=== PATIENT | female | born 1940 | race Caucasian/White ===

== ENCOUNTER → 2016-11-09 | Outpatient (CLI) | payer MEDICARE, OTHER ==
[~2016-11-09] MED LIST: ASPI-346 PO; CHOL1TAB46 PO; CZR50 PO; IBUP-1050 PO; METO25TA3 PO; MULT-506 PO; SIMV20TA2 PO; [UNRECOGNIZED DRUG - CODE] PO
[2016-11-09 13:12] LABS: ALT/SGPT 35 U/L (12-78); AST/SGOT 36 U/L (15-37); BLOOD UREA NITROGEN 18 mg/dl (7-18); BUN/CREATININE RATIO 14.7 (10-20); CALCIUM 9.4 mg/dl (8.5-10.1); CARBON DIOXIDE 30 mmol/L (21-32); CHLORIDE 106 mmol/L (98-107); GLUCOSE 101 mg/dl (70-99); POTASSIUM 4.1 mmol/L (3.5-5.1); SODIUM 141 mmol/L (136-145)
[2016-11-09 13:15] LABS: ALB/GLOB RATIO 0.9 (0.9-2); ALKALINE PHOSPHATASE 64 U/L (45-117); CHOLESTEROL 137 mg/dl (0-200); CHOLESTEROL/HDL RATIO 2.1; HDL CHOLESTEROL 65 mg/dl; LDL CHOLESTEROL CALCULATED 42 mg/dl; TRIGLYCERIDES 149 mg/dl (0-150); VERY LOW DENSITY LIPOPROT CALC 30 mg/dl
[2016-11-09 13:38] LABS: ESTIMATED AVERAGE GLUCOSE 126 mg/dl; HA1C FLAG Normal (Normal)
== END | disposition home or self-care (01) ==
LOC: C.LABBFT 08:37
PROVIDERS: ATTEND Internal Medicine
DX: E11.9 Type 2 diabetes mellitus without complications (principal); E78.00 Pure hypercholesterolemia, unspecified

== ENCOUNTER → 2016-11-19 | Outpatient (CLI) | payer MEDICARE, OTHER ==
--- NOTE | 2016-11-19 10:57 | DIAGNOSTIC IMAGING REPORT ---
BILATERAL CAROTID DOPPLER STUDY HISTORY: Mental status change E04.1 Solitary thyroid [id number] COMPARISON: None. TECHNIQUE: Real-time, grayscale, and color Doppler sonography of the carotid arteries was performed. Imaging reviewed in the transverse and longitudinal planes. All measurements were calculated based on NASCET criteria. FINDINGS: Antegrade flow is seen in the bilateral vertebral arteries. The brachial pressures are hemodynamically similar. Moderate plaque formation bilaterally The peak systolic velocity within the right ICA is 112. The right systolic ratio is 2.1. The peak systolic velocity within the left ICA is 136. The left systolic ratio is 2.2. IMPRESSION: 30/40% narrowing of the internal carotid arteries bilaterally. Mild plaque formation bilaterally. No evidence for high-grade stenosis. Electronically signed by: Jose De Los Santos M.D. 11/19/2016 10:55 AM Dictated Date/Time: 11/19/2016 10:53 AM
--- NOTE | 2016-11-19 11:00 | DIAGNOSTIC IMAGING REPORT ---
THYROID ULTRASOUND HISTORY: Nodule E04.1 Solitary thyroid [id number] COMPARISON: 12/25/2013 FINDINGS: Right lobe: Maximum dimension 3.7 cm. Several microcysts measuring no more than 3 mm. Left lobe: Maximum dimension 3.4 cm. Several very small hypoechoic and/or cystic nodules measuring no more than 6 mm. This is improved from the prior exam. Isthmus: No nodules. IMPRESSION: Minimal multicystic multinodular change. No current evidence for dominant nodule. Improved from the prior exam. Electronically signed by: Jose De Los Santos M.D. 11/19/2016 10:58 AM Dictated Date/Time: 11/19/2016 10:55 AM
== END | disposition home or self-care (01) ==
LOC: C.ULTR 09:52
PROVIDERS: ATTEND Internal Medicine
DX: E04.1 Nontoxic single thyroid nodule (principal); I65.23 Occlusion and stenosis of bilateral carotid arteries

== ENCOUNTER → 2017-05-17 | Outpatient (CLI) | payer MEDICARE ==
[2017-05-17 12:36] LABS: URINE APPEARANCE TURBID (CLEAR); URINE BILIRUBIN NEG (NEG); URINE COLOR YELLOW; URINE EPITHELIAL CELL AUTO >30 /lpf (0-5); URINE NITRITE NEG (NEG); URINE PH 6.5 (4.5-7.5); URINE SPECIFIC GRAVITY 1.017 (1.000-1.030); UROBILINOGEN NEG (NEG); ZZUR CULT IF INDIC CLEAN CATCH NO
[2017-05-17 12:37] LABS: MANUAL MICROSCOPIC REQUIRED? NO; REVIEW REQ? NO
[2017-05-17 12:42] LABS: BLOOD UREA NITROGEN 15 mg/dl (7-18); BUN/CREATININE RATIO 13.7 (10-20); CALCIUM 9.4 mg/dl (8.5-10.1); CARBON DIOXIDE 27 mmol/L (21-32); CHLORIDE 106 mmol/L (98-107); GLUCOSE 108 mg/dl (70-99); POTASSIUM 4.2 mmol/L (3.5-5.1); SODIUM 141 mmol/L (136-145)
[2017-05-17 13:04] LABS: BASO % 0.5 %; BASO ABS # 0.05 K/uL (0-0.2); COMPLETE YES; EOS % 1.4 %; HEMATOCRIT 45.5 % (37-47); IG% 0.5 %; LYMPH % 27.1 %; LYMPH ABS # 2.88 K/uL (1.2-3.4); MEAN CELL VOLUME 95.2 fL (80-100); MEAN CORPUSCULAR HEMOGLOBIN 30.1 pg (25-34); MEAN CORPUSCULAR HGB CONC 31.6 g/dl (32-36); MEAN PLATELET VOLUME 10.5 fL (7.4-10.4); NEUT % 63.5 %; PLATELET COUNT 292 K/uL (130-400); RED BLOOD COUNT 4.78 M/uL (4.2-5.4); WHITE BLOOD COUNT 10.64 K/uL (4.8-10.8)
[2017-05-17 13:16] LABS: RATIO 34.2 mcg/mg (0-30.0)
== END | disposition home or self-care (01) ==
LOC: C.LABBFT 08:31
PROVIDERS: ATTEND Internal Medicine
DX: E11.9 Type 2 diabetes mellitus without complications (principal); E78.00 Pure hypercholesterolemia, unspecified; M81.0 Age-related osteoporosis without current pathological fracture

== ENCOUNTER → 2017-05-31 | Outpatient (CLI) | payer OTHER ==
--- NOTE | 2017-05-31 15:21 | MAMMOGRAPHY REPORT ---
UNILATERAL RIGHT DIGITAL SCREENING MAMMOGRAM TOMOSYNTHESIS WITH CAD: 05/31/2017 CLINICAL HISTORY: Asymptomatic. Personal history of breast cancer. TECHNIQUE: Right breast tomosynthesis in addition to standard 2D mammography was performed. Current miranda galvez was also evaluated with a Computer Aided Detection (CAD) system. COMPARISON: Comparison is made to exams dated: 05/25/2016 mammogram, 05/20/2015 mammogram, 03/29/2014 mammogram, 03/27/2013 mammogram, 03/24/2012 mammogram, and 03/22/2011 mammogram - [facility] enter. BREAST COMPOSITION: The tissue of the right breast is almost entirely fatty. FINDINGS: There are scattered benign rim calcifications in the right breast. A stable intramammary lymph node in the upper outer quadrant, and is stable asymmetry in the lateral breast. No suspicious mass, architectural distortion or cluster of microcalcifications is seen. IMPRESSION: ACR BI-RADS CATEGORY 2: BENIGN There is no mammographic evidence of malignancy. A 1 year screening mammogram is recommended. The pa tient will receive written notification of the results. Approximately 10% of breast cancers are not detected with mammography. A negative mammographic report should not delay biopsy if a clinically suggestive mass is present. Zeinab Peck M.D. ay/:05/31/2017 12:08:30 Monorail Charger Operator: Linette LOO)([place]), [facility] letter sent: Normal 1/2 BI-RADS Code: ACR BI-RADS Category 2: Benign
== END | disposition home or self-care (01) ==
LOC: C.MAMM 09:46
PROVIDERS: ATTEND Internal Medicine
DX: Z12.31 Encounter for screening mammogram for malignant neoplasm of breast (principal)

== ENCOUNTER → 2017-06-28 | Outpatient (CLI) | payer MEDICARE | END | disposition home or self-care (01) | LOC: C.MAMM 09:36 | PROVIDERS: ATTEND Internal Medicine | DX: M81.0 Age-related osteoporosis without current pathological fracture (principal) ==

== ENCOUNTER → 2017-11-22 | Outpatient (CLI) | payer MEDICARE ==
[~2017-11-22] MED LIST changes: -METO25TA3 PO; +METO25TA4 PO
[2017-11-22 12:55] LABS: HEMOGLOBIN A1C 6.1 % (4.5-5.6)
[2017-11-22 13:12] LABS: ALBUMIN 3.7 gm/dl (3.4-5.0); ALT/SGPT 41 U/L (12-78); AST/SGOT 49 U/L (15-37); BLOOD UREA NITROGEN 15 mg/dl (7-18); CALCIUM 9.7 mg/dl (8.5-10.1); CARBON DIOXIDE 29 mmol/L (21-32); CHOLESTEROL 136 mg/dl (0-200); CREATININE 1.25 mg/dl (0.60-1.20); GLUCOSE 103 mg/dl (70-99); POTASSIUM 4.3 mmol/L (3.5-5.1); SODIUM 139 mmol/L (136-145)
[2017-11-22 13:15] LABS: ALKALINE PHOSPHATASE 74 U/L (45-117); LDL CHOLESTEROL CALCULATED 48 mg/dl
== END | disposition home or self-care (01) ==
LOC: C.LABBFT 08:28
PROVIDERS: ATTEND Internal Medicine
DX: E78.00 Pure hypercholesterolemia, unspecified (principal); E11.9 Type 2 diabetes mellitus without complications

== ENCOUNTER → 2017-11-29 | Outpatient (CLI) | payer MEDICARE | END | disposition home or self-care (01) | LOC: C.LABBFT 11:55 | PROVIDERS: ATTEND Internal Medicine | DX: R77.1 Abnormality of globulin (principal); N18.3 Chronic kidney disease, stage 3 (moderate) ==

== ENCOUNTER 2021-02-03 06:27 | Inpatient (IN) ==
--- NOTE | 2021-01-13 13:35 | PAT Medication Instructions ---
Medication Instructions Date of Service January 13, 2021 Home Medications Medication Instructions Recorded miscellaneous medical supply #1 ea 06/04/19 miscellaneous medical supply #2 ea 06/04/19 simvastatin 40 mg tablet 40 mg PO HS #90 tab 06/05/20 cholecalciferol (vitamin D3) 125 mcg (5,000 unit) tablet 5,000 units PO QAM glucosam mcmanus vzk-bwhisbhvs-P-Mn 1 cap PO BID simvastatin 40 mg tablet 40 mg PO HS acetaminophen [Tylenol Extra Strength] 500 mg PO Q6H PRN aspirin [Aspir-81] 81 mg PO QAM ibuprofen 200 mg PO Q6H PRN losartan 100 mg PO QAM metoprolol succinate 25 mg PO QAM multivitamin 1 tab PO QAM ASK your surgeon for instructions ibuprofen 200 mg PO Q6H PRN STOP taking 2 weeks before surgery (or as soon as possible if surgery is within 2 weeks) glucosam mcmanus fbh-fbprzavvj-K-Mn 1 cap PO BID DO NOT take the morning of surgery cholecalciferol (vitamin D3) 125 mcg (5,000 unit) tablet 5,000 units PO QAM losartan 100 mg PO QAM multivitamin 1 tab PO QAM Take morning of surgery With a small sip of water, OTHERWISE NOTHING TO EAT OR DRINK AFTER MIDNIGHT: acetaminophen [Tylenol Extra Strength] 500 mg PO Q6H PRN (okay to take up to 4 hours prior to surgery if needed) aspirin [Aspir-81] 81 mg PO QAM (continue as normal unless told otherwise by surgeon) metoprolol succinate 25 mg PO QAM Take evening before surgery simvastatin 40 mg tablet 40 mg PO HS acetaminophen [Tylenol Extra Strength] 500 mg PO Q6H PRN (if needed) Other Notes If you have any questions please call us at [phone] or [phone] or [phone] or [phone]
--- NOTE | 2021-01-14 12:38 | Anesthesiology Consultation ---
Date of Service January 14, 2021 Assessment & Plan (1) Encounter for pre-operative examination: - Awaiting surgeon-ordered PCP clearance. - COVID screening: Per assessment on 01/14: Travel screen negative, no known COVID-19 positive contacts or current COVID-19 related symptoms. Patient vaccinated. Surgeon arranging preop COVID testing. Awaiting results. - Hx glidescope intubation: Lap cholecystectomy (04/30/19): DL x1- Grade 4, EZ mask vent, Glidescope #3 (grade view 2), ETT 7 at [facility] - LUE limb restriction: s/p mastectomy - Cardiology office visit (01/16/21): "Her preoperative EKG shows new inferior T- wave inversions which are most likely secondary to LVH. Her last Echocardiogram in 2018 showed normal LV systolic function, mild concentric LVH, hfwv-hw-cymuxcex aortic stenosis, mild MR, mild TR. Recommend repeat Echocardiogram to re-evaluate LV systolic function, and to assess her valvular heart disease prior to undergoing elective orthopedic surgery.. Provided her has not shown significant progression, and she has normal LV systolic function -- patient will be in acceptable surgical risk to proceed with surgery as scheduled provided she take her usual dose of Metoprolol Succinate ER 25 mg with sips of water. Patient was advised to hold Losartan the morning of surgery. Recommend DVT prophylaxis postoperatively as per surgeon. Also recommend monitoring daily I&O's, body weights, daily labs and avoiding nephrotoxic drugs." Awaiting cardiology-ordered ECHO report. Chart Review Chart Review: Patient seen in Pre Admission Testing Teaching & Discussion Pre-Anesthesia Teaching/Discussion Notes: Instructed NPO after midnight before surgery,except medications with 15 cc of water. Medication instructions provided according to the PAT guidelines. History Surgery Operation Date: 02/03/21 10:35 Proposed Procedures p Left Total Hip Arthroplasty Anterior - Boubacar Garcia DO Height/Weight Height: 5 ft Weight: 65.2 kg Allergies Allergy/AdvReac Type Severity Reaction Status Date / Time adhesive Allergy Unknown Skin Verified 01/16/21 10:47 irritation with tape propoxyphene AdvReac Unknown Nausea Verified 01/16/21 10:47 amoxicillin AdvReac Nausea Verified 01/16/21 10:47 Opioid Analgesics AdvReac Unknown Dizziness Uncoded 01/16/21 10:47 Medications Home Medications Medication Instructions Recorded Confirmed Last Taken cholecalciferol (vitamin D3) 125 5,000 units PO QAM tab 02/21/19 01/16/21 04/20/19 mcg (5,000 unit) tablet glucosam mcmanus dxc-tmooahzlx-F-Mn 1 cap PO BID 04/09/19 01/16/21 04/20/19 miscellaneous medical supply #1 ea 06/04/19 01/16/21 Unknown miscellaneous medical supply #2 ea 06/04/19 01/16/21 Unknown simvastatin 40 mg tablet 40 mg PO HS #90 tab 06/05/20 01/16/21 Unknown acetaminophen [Tylenol Extra 500 mg PO Q6H PRN 01/06/21 01/16/21 Unknown Strength] aspirin [Aspir-81] 81 mg PO QAM 01/06/21 01/16/21 Unknown ibuprofen 200 mg PO Q6H PRN 01/06/21 01/16/21 Unknown losartan 100 mg PO QAM 01/06/21 01/16/21 Unknown metoprolol succinate 25 mg PO QAM 01/06/21 01/16/21 Unknown multivitamin 1 tab PO QAM 01/06/21 01/16/21 Unknown Past Medical History Medical History Aortic stenosis Arthritis Cancer Carotid stenosis CKD (chronic kidney disease), stage III Diverticular disease Hearing loss Hyperacusis of both ears Hyperlipidemia Hypertension Memory impairment Osteoarthritis Pulmonary embolism Exercise / Class Metabolic Activity III < 4 Walking/Shop/Light housework (no chest pain, no sob with daily activities (housework)) Past Family History Family History Mother Cardiac disorder Father Cardiac disorder Sister Myocardial infarction Stroke syndrome Denies family history of Ovarian cancer Prostate cancer Breast cancer Colorectal cancer Past Surgical History Surgical History H/O cystoscopy History of bilateral tubal ligation History of cataract surgery History of CEA (carotid endarterectomy) History of cholecystectomy History of colonoscopy History of modified radical mastectomy of left breast History of partial colectomy History of total abdominal hysterectomy and bilateral salpingo-oophorectomy Past Anesthesia History No Family Hx of Anesthesia Complications and Other ("Slow to wake") History of PONV No Hx of PONV and Hx of Motion Sickness (Remote hx) Social History Smoking Status: Former smoker Do You Dip or Chew Tobacco: No Smoking End Date: Quit several years ago Hx Alcohol Use: No Hx Substance Use: No Review of Systems + snoring. No apnea events. Patient denies chest pain, shortness of breath, fever, chills, cough, wheezing, palpitations. Physical Exam Vital Signs VITALS BP 122/72 P 74 TEMP 98.6 SP02 95%RA RESP 16 PHYSICAL Full cervical extension range of motion. Full TMJ range of motion. TMD 2 finger breaths (small chin) Mallampati Score 3 Dentition: intact, + crowns Lungs: clear throughout to auscultation Cardiac: regular rate and rhythm, I/ systolic murmur Spine: normal Carotid arteries: + bruits Extremities: no edema Lab Results Anesthesia Preop Results Results Anesthesia Widget: WBC 9.39 K/uL (4.8-10.8) 01/14/21 Hgb 14.0 g/dL (12.0-16.0) 01/14/21 Hct 42.4 % (37-47) 01/14/21 Plt 287 K/uL (130-400) 01/14/21 Na 142 mmol/L (136-145) 01/14/21 K 4.1 mmol/L (3.5-5.1) 01/14/21 Cl 109 mmol/L (98-107) H 01/14/21 CO2 27 mmol/L (21-32) 01/14/21 BUN 23 mg/dl (7-18) H 01/14/21 Creat 1.15 mg/dl (0.6-1.2) 01/14/21 Glucose Level 89 mg/dl (70-99) 01/14/21 PT 10.6 Seconds (9.0-12.0) 01/14/21 PTT 30.4 Seconds (21.0-31.0) 01/14/21 INR 1.0 (0.9-1.1) 01/14/21 HA1c 5.9 % (4.5-5.6) H 01/14/21 Urine Color Yellow 01/14/21 Urine Appearance Clear (Clear) 01/14/21 Urine pH 5.5 (4.5-7.5) 01/14/21 Urine Specific [place] 1.015 (1.000-1.030) 01/14/21 Urine Protein Negative (Negative) 01/14/21 Urine Glucose (UA) Negative (Negative) 01/14/21 Urine Ketones Negative (Negative) 01/14/21 Urine Blood 1+ (Negative) H 01/14/21 Urine Nitrite Negative (Negative) 01/14/21 Urine Bilirubin Negative (Negative) 01/14/21 Urine Urobilinogen Negative (Negative) 01/14/21 Urine Leukocyte Esterase Trace (Negative) H 01/14/21 Urine WBC (Auto) 10-30 /hpf (0-5) H 01/14/21 Urine RBC (Auto) 5-10 /hpf (0-4) H 01/14/21 Urine Hyaline Casts (Auto) 5-10 /lpf (0-5) H 01/14/21 Urine Epithelial Cells (Auto) >30 /lpf (0-5) H 01/14/21 Urine Bacteria (Auto) 1+ (Negative) H 01/14/21 Blood Type O Positive 01/14/21 Antibody Screen NEGATIVE 01/14/21 Testing Electrocardiogram Date: 01/14/21 Normal sinus rhythm at 64 bpm chronic T wave inversion in anterior lateral leads T wave inversion in inferior leads. > Patient scheduled for upcoming preop cardiac evaluation. Chest X-Ray Date: 01/14/21 FINDINGS: The cardiac and mediastinal contours are normal. There is no evidence of focal pulmonary consolidation. There is no evidence of failure. No pleural effusions are visualized.[There are mild chronic midthoracic vertebral body compression deformities. IMPRESSION: No active disease in the chest. Echocardiogram Date: 01/10/19 EF 60 to 65%. No regional wall motion abnormality. Mild concentric LVH. Mild to moderate aortic stenosis (LEONORA 1.5 cm, mean gradient 10.8 mmHg). Compared to study 11/30/2016, there has been some progression of aortic stenosis. Mild MR. Mild TR. Grade 1 diastolic dysfunction. Other Testing Carotid doppler (02/08/19): SHABNAM <50% stenosis, LICA 50-69% stenosis, > 50% Left ECA stenosis, b/l antegrade flow. Compared to previous exam 12/08/17, slight progression of left ICA stenosis by PSVs but still remains within 50-69%.
--- NOTE | 2021-01-23 18:18 | History & Physical Report ---
Date of Service February 03, 2021 Assessment & Plan (1) Degenerative joint disease of left hip: I have indicated the patient for left anterior total hip replacement. The risks, benefits and complications of surgery were explained to the patient which include but not limited to infection, acute blood loss, DVT/PE, injury to nerves, vessels, bone, soft tissue, arthrofibrosis, chronic pain, failure of the prosthesis, hip dislocation, leg length discrepancy, need for additional surgery, cardiac and pulmonary events and . The patient wished to proceed with surgery and informed consent was obtained at this time. We will plan for Lovenox post-operatively for DVT prophylaxis. Upon discharge the patient will be discharged home with home health services. Appropriate clearances by PCP and cardiology were obtained. History of Present Illness Chief Complaint: Left hip pain/DJD Primary Care Provider: zA Sapp MD The patient is a 80 year old female who presents with complaints of severe left hip pain and DJD. The patient has failed outpatient conservative treatments to this point which included NSAIDs, IA corticosteroid injection, home exercise/walking program. The patient's pain and limited function have progressed to the point where they severely hinder their activities of daily living and they no longer tolerate exercise programs. They are requesting to proceed with total hip replacement surgery. Allergies Allergy/AdvReac Type Severity Reaction Status Date / Time adhesive Allergy Unknown Skin Verified 02/03/21 06:53 irritation with tape propoxyphene AdvReac Unknown Nausea Verified 02/03/21 06:53 amoxicillin AdvReac Nausea Verified 02/03/21 06:53 Opioid Analgesics AdvReac Unknown Dizziness Uncoded 02/03/21 06:53 Home Medications Medication Instructions Recorded Confirmed Type cholecalciferol (vitamin D3) 125 5,000 units PO QAM tab 02/21/19 02/03/21 History mcg (5,000 unit) tablet glucosam mcmanus sls-yubbuagez-Z-Mn 1 cap PO BID 04/09/19 02/03/21 History miscellaneous medical supply #1 ea 06/04/19 01/21/21 Rx miscellaneous medical supply #2 ea 06/04/19 01/21/21 Rx simvastatin 40 mg tablet 40 mg PO HS #90 tab 06/05/20 02/03/21 Rx acetaminophen [Tylenol Extra 500 mg PO Q6H PRN 01/06/21 02/03/21 History Strength] aspirin [Aspir-81] 81 mg PO QAM 01/06/21 02/03/21 History ibuprofen 200 mg PO Q6H PRN 01/06/21 02/03/21 History losartan 100 mg PO QAM 01/06/21 02/03/21 History metoprolol succinate 25 mg PO QAM 01/06/21 02/03/21 History multivitamin 1 tab PO QAM 01/06/21 02/03/21 History Past Med/Surg History Medical History Aortic stenosis Mild to moderate aortic stenosis (LEONORA 1.5cm2, MG 10.8mmhg) per 12/2018 echo Arthritis Cancer Left breast s/p left mastectomy (/ limb restriction) Carotid stenosis s/p Right CEA (2013) CKD (chronic kidney disease), stage III PCP monitoring Diverticular disease remote colon resection 2/2 diverticulitis Hearing loss Hyperacusis of both ears Hyperlipidemia Hypertension Memory impairment Osteoarthritis Pulmonary embolism Post-op (cystoscopy 17+ years ago)- previously on AC/since discontinued Surgical History H/O cystoscopy History of bilateral tubal ligation History of cataract surgery R/L History of CEA (carotid endarterectomy) Right (2013) History of cholecystectomy Lap cholecystectomy (04/30/19): DL x1- Grade 4, EZ mask vent, Glidescope #3 (grade view 2), ETT 7 at [facility] History of colonoscopy History of modified radical mastectomy of left breast History of partial colectomy History of total abdominal hysterectomy and bilateral salpingo-oophorectomy Family History Mother Cardiac disorder Father Cardiac disorder Sister Myocardial infarction Stroke syndrome Denies family history of Ovarian cancer Prostate cancer Breast cancer Colorectal cancer Social History Smoking Status: Former smoker Smoking End Date: Quit several years ago; Second Hand Exposure: No; Do You Dip or Chew Tobacco: No; Hx Alcohol Use: No Hx Substance Use: No Preferred Language: Maltese Communication Ability: Effective Visual Impairment: No Limitations Hearing Ability: Hard of Hearing Milk Hauler Required: No Beliefs That Will Affect Care: None marital status: / Current Living Situation: Alone current occupational status: retired Other Information That Helps Us Care for You: No Feels Safe at Home: Yes Safety Concerns: Feels Safe At This Time Childhood Exposure to Second-Hand Smoke: Yes caffeine: Yes (coffee) Dental Care, Regularly: Yes Physical Activity Frequency: Does not Exercise Seatbelt Use: always Sunscreen Use: No Assistive Devices: Cane, Glasses and Hearing Aid - Bilateral Review of Systems Review of Systems: All systems reviewed & are unremarkable except as noted in HPI & below Constitutional: as per Subjective / HPI Physical Exam Physical Exam: LLE NVSI +EHL/FHL/TA/GS SILT grossly, +2 DP pulse, compartments soft NT, limited painful ROM of the hip antalgic gait. Constitutional: WD/WN, vitals as above Eyes: PERRL, conjunctivae normal, anicteric sclerae ENMT: external ear and nose normal, oropharynx normal Neck: trachea midline, no thyromegaly Respiratory: normal respiratory effort, lungs clear to auscultation Cardiovascular: RRR, no murmur, no edema Gastrointestinal (Abdomen): normal bowel sounds, soft, nontender, no hepatosplenomegaly Musculoskeletal: no cyanosis or clubbing, extremities motor strength 5/5 Skin: no rashes, warm and dry Neurologic: patellar DTR's 2+ bilat, sensation intact Psychiatric: A+Ox3, euthymic affect Lymphatic: no cervical or axillary lymphadenopathy Results & Data Results & Data ([facility]) Diagnostic Findings Multiple views of the hip demonstrates severe DJD with complete loss of the joint space. +osteophytes, +sclerosis, +subchondral cysts.
[~2021-02-03 06:27] MED LIST changes: +ACETAMINOPHEN 500 MG TAB PO SCH; -ASPI-346 PO; +BUPIVACAINE 0.5 % 5 MG/1 ML PF 10ML VIAL ONE; -CHOL1TAB46 PO; -CZR50 PO; +CeleBREX 200 MG CAP PO SCH; +FAMOTIDINE 20 MG TAB PO SCH; +GABAPENTIN 300 MG CAP PO SCH; -IBUP-1050 PO; +LR 15ML/HR IV SCH; -METO25TA4 PO; +METOCLOPRAMIDE HCL 10 MG TABLET PO SCH; -MULT-506 PO; +ROPIVACAINE 0.5% HCL/PF 150 MG, BUPIVACAINE 0.75% MPF 20 ML, EPINEPHrine 30MG/30ML (OR ... INFIL SCH; -SIMV20TA2 PO; +TRANEXAMIC ACID 1,000 MG **IV Intra-op IV SCH; +TRANEXAMIC ACID 1,000 MG **IV Pre-op IV SCH; -[UNRECOGNIZED DRUG - CODE] PO; +ceFAZolin 1000MG 1,000 MG/7.5 ML SYR IV SCH; +dexAMETHasone 4 MG TAB PO SCH
[2021-02-03] MEDS ORDERED: fentaNYL citrate 100 MCG/2 ML VIAL ONE (07:43)
[2021-02-03] MEDS ORDERED: MIDAZOLAM HCL 1 MG/ML 2ML VIAL ONE (07:43)
[2021-02-03] MEDS ORDERED: PROPOFOL IV EMULSION 10 MG/ML 20 ML VIAL IV ONE (07:43)
[2021-02-03] MEDS ORDERED: LIDOCAINE 2% 2 ML VIAL/AMP(20MG/ML) INFIL ONE (07:43)
[2021-02-03] MEDS ORDERED: PHENYLEPHRINE 100MCG/ML 5ML SYR IV PRN (08:57)
[2021-02-03] MEDS ORDERED: ATROPINE SULFATE 0.1 MG/ML 10ML SYR IV PRN (08:57)
[2021-02-03] MEDS ORDERED: LABETALOL HCL IV 5 MG/ML 20ML IV PRN (08:57)
[2021-02-03] MEDS ORDERED: ePHEDrine sulfate 50 MG/ML AMP IV PRN (08:57)
[2021-02-03] MEDS ORDERED: fentaNYL citrate 100 MCG/2 ML VIAL IV PRN (08:57)
[2021-02-03] MEDS ORDERED: ONDANSETRON INJ 2 MG/ML 2 ML VIAL IV PRN ×2 (08:57→13:27)
--- NOTE | 2021-02-03 09:08 | History & Physical Bridge Note ---
Date of Service February 03, 2021 History & Physical Bridge Note I have examined the patient, reviewed the History & Physical and in the interval since the performance of the History & Physical I have noted the following changes of clinical significance: no changes noted
[2021-02-03] MEDS ORDERED: ORTHO JOINT ANESTHETIC ONE (09:16)
--- NOTE | 2021-02-03 11:32 | Post Operative Brief Note ---
Immediate Post Op Note v1 Date of Surgery February 03, 2021 Pre & Post Diagnosis Operation Date: 02/03/21 09:20 Pre-Op Diagnosis: Unilateral Primary Osteoarthritis Left Hip Post-Op Diagnosis: Unilateral Primary Osteoarthritis Left Hip I identified the patient and participated in the time-out.: Yes Procedure Operation Date: 02/03/21 09:20 Actual Procedures p Left Anterior Total Hip Arthroplasty(Left) - Boubacar Garcia DO Surgeon Boubacar Garcia DO Brick Handler Mark Guerra Estimated Blood Loss 165 Findings Consistent with Post-Op Diagnosis Fluids See anesthesia report Specimens Femoral head Anesthesia Type Spinal MAC Complications none Disposition Disposition: Recovery Room Overlapping Procedure I was present for: the critical portions of procedure. I was immediately available: during the entire case. Back up surgeon: was not required during procedure.
--- NOTE | 2021-02-03 11:34 | Operative Report ---
Post Operative Report Pre & Post Diagnosis Operation Date: 02/03/21 09:20 Pre-Op Diagnosis: Unilateral Primary Osteoarthritis Left Hip Post-Op Diagnosis: Unilateral Primary Osteoarthritis Left Hip I identified the patient and participated in the time-out.: Yes Procedure Operation Date: 02/03/21 09:20 Actual Procedures p Left Anterior Total Hip Arthroplasty(Left) - Boubacar Garcia DO Surgeon Boubacar Garcia DO Disease Management Nurse Mark Guerra Estimated Blood Loss 165 Findings Consistent with Post-Op Diagnosis Fluids See anesthesia report Specimens Femoral head Anesthesia Type Spinal MAC Complications none Disposition Disposition: Recovery Room Indications The patient is a 80-year-old female who presents with severe progressive left hip DJD who has failed outpatient conservative treatments. I indicated the patient for a anterior total hip replacement and the risks and benefits were explained in detail which include but not limited to infection, bleeding, blood clot, damage to surrounding bone, nerves, vessels, soft tissue, hip dislocation, failure of the prosthesis, leg length discrepancy, need for additional surgery and . The patient agreed to proceed with replacement of the hip and informed consent was obtained. Appropriate clearances were obtained. Description of Procedure COMPONENTS USED: [employer]ph[employer]ology hip system: Acetabulum size 48, femur size 4 high offset, femoral head 32+0, liner 48x32, acetabular screw 25 mm x 1. DESCRIPTION OF PROCEDURE: Following satisfactory spinal anesthesia, the patient was placed supine on the OR table. The right leg was placed in the well leg self and the left leg in the traction device. The left leg was prepared with ChloraPrep and draped sterilely. A surgical timeout was performed, patient identified and site [place] verified. Appropriate antibiotics were given. A standard anterior approach in the interval between the sartorius and tensor muscles was performed. Dissection was carried down through subcutaneous tissues. Electrocautery was utilized for hemostasis. Circumflex femoral vessels were identified, tied and ligated. The anterior capsular fat pad was removed and the capsulotomy was performed revealing the arthritic femoral neck and head. A femoral neck cut was made with reciprocating saw and the bone fragments removed. The acetabular self-retraining retractor was placed. Acetabular reaming was completed under fluoroscopic guidance, a 48 shell was impacted into an anatomic position and secured with a acetabular screw. Local anesthetic was placed and following irrigation, the polyethylene liner was placed. The femur was placed into position of external rotation, extension and adduction. Femoral canal was prepared up to the size 4 high offset. Trial reduction with a 32+0 neck length head showed good soft tissue tension, leg lengths restored, and good fit and fill of the proximal canal using fluoroscopic landmarks. The hip was dislocated. The trial component was removed. The final implant was placed. The hip was irrigated with sterile saline solution and reduced. A Betadine soak was performed. After 3 minutes, the hip was once more irrigated with copious sterile saline solution with bacitracin. Saranya-incisional soft tissue was injected utilizing [place] [employer]omix which includes a combination of Ropivicaine 0.5% 150mg, Bupivicaine 0.5%/Epinephrine 1:200,000 30ml, Toradol 30mg, Dexamethasone 4mg, Ketamine 10mg, Clonidine 100mcg and NSS 30ml solution. The capsule was then closed with 1-0 Vicryl interrupted figure of eight sutures. The fascia was closed with a running suture of #1 Vicryl, the subcutaneous tissues with 2-0 Vicryl and the skin was closed with alondra and a sterile dry d ressing was applied which included aubrie incisional VAC. The patient tolerated the procedure well and was transported to PACU in stable condition. Due to the complex nature of the procedure, the entire surgery was performed with the operational assistance of Mark Guerra PA-C. The pizza hut assistant, under direct supervision, was involved in the actual performance of all aspects of the surgical procedure including patient positioning, hemostasis, tissue retraction, instrument management and wound closure. I attest to the content of the Intraoperative Record and any orders documented therein. Any exceptions are noted below.
--- NOTE | 2021-02-03 12:11 | Anesthesiology Progress Note ---
Date of Service February 03, 2021 Anesthesia Post Procedure Vital Signs Vital Signs: Temp Pulse Pulse Resp BP Pulse Ox 02/03/21 11:52 36.1 C L 63 18 126/40 L 100 02/03/21 07:07 36.7 C 74 18 156/58 H 96 Transfer of Care Handoff Completed per policy Notes Mental Status: alert / awake / arousable Patient Amnestic to Procedure: Yes Nausea / Vomiting: adequately controlled Pain: adequately controlled Airway Patency, RR, SpO2: stable & adequate BP & HR: stable & adequate Hydration State: stable & adequate Neuraxial Anesthesia: was administered and sensory block is resolving Anesthetic Complications: no major complications apparent and Pt Satisfied with anesthetic care Notes: The patient is awake and comfortable. Her vital signs are stable.
--- NOTE | 2021-02-03 12:21 | Fluoroscopy Report ---
FL hip LT 1V CLINICAL HISTORY: LT ANTERIOR TOTAL COMPARISON STUDY: None FLUOROSCOPY TIME: 41 seconds. NUMBER OF FLUOROSCOPIC IMAGES: 2 FINDINGS: Intraoperative fluoroscopic images were presented for review Prosthetic left hip is seen. Metallic density is seen within the [id number]. IMPRESSION: As above. ACT 112: Negative or not required by law. The above report was generated using voice recognition software. It may contain grammatical, syntax o r spelling errors. Electronically signed by: Katie Etienne DO 02/03/2021 12:20 PM
--- NOTE | 2021-02-03 12:58 | XRay Report ---
XR hip 1V LT w pelvis CLINICAL HISTORY: Left hip arthroplasty COMPARISON: February 2019 DISCUSSION: There are postsurgical changes of a total left hip arthroplasty. Acetabular and femoral c omponents appear well seated. There is no dislocation. There are no acute fractures. There is gas wit hin the soft tissues consistent with recent surgery. There are overlying skin alondra. IMPRESSION: Postsurgical changes of a total left hip arthroplasty. ACT 112: Negative or not required by law. Electronically signed by: Chris Ball M.D. 02/03/2021 12:57 PM
[2021-02-03] MEDS ORDERED: diphenhydrAMINE Capsule 25 MG CAP PO PRN (13:27)
[2021-02-03] MEDS ORDERED: METOCLOPRAMIDE HCL INJ 5 MG/ML 2 ML VIAL IV PRN (13:27)
[2021-02-03] MEDS ORDERED: bisacodyL 10 MG SUPP PR PRN (13:27)
[2021-02-03] MEDS ORDERED: HYDROmorphone INJ 0.5 MG/0.5 ML SYR IV PRN (13:27)
[2021-02-03] MEDS ORDERED: MAGNESIUM HYDROXIDE SUSP 30 ML UDC PO PRN (13:27)
[2021-02-03] MEDS ORDERED: NALOXONE HCL 0.4 MG/1 ML VIAL/CARP IV PRN (13:27)
[2021-02-03] MEDS: SODIUM CHLORIDE 0.9% 1000ML 1,000 ML IV SCH (13:43)
[2021-02-03] MEDS: ACETAMINOPHEN 500 MG TAB PO SCH ×2 (13:47→20:45)
[2021-02-03] MEDS: ceFAZolin 1000MG 1,000 MG/7.5 ML SYR IV SCH (17:23)
[2021-02-03] MEDS: SIMVASTATIN 40 MG TAB PO SCH (20:45)
[2021-02-03] MEDS: DOCUSATE SODIUM 100 MG CAP PO SCH (20:45)
[2021-02-03] MEDS: SENNA 8.6 MG TAB PO SCH (20:46)
--- NOTE | 2021-02-03 21:57 | Orthopedic Progress Note ---
Date of Service February 03, 2021 Assessment & Plan (1) Degenerative joint disease of left hip: s/p Left anterior LUBNA -ancef x 24 -DVT ppx: SCDs, TEDs, Lovenox daily -WBAT LLE -PT/OT -PO XR demonstrates a well aligned well fixed prosthesis without fracture/dislocation -am labs -DC planning Admission and Anticipated Discharge Date Admission Date: February 03, 2021 Subjective Post Operative Progress Note Patient seen sitting up in bed, comfortable, denies complaints, pain well controlled, no acute issues. Review of Systems Review of Systems: All systems reviewed & are unremarkable except as noted in HPI & below Constitutional: as per Subjective / HPI Physical Exam Physical Exam: LLE NVSI +EHL/FHL/TA/GS SILT grossly, +2 DP pulse, compartments soft NT, dressing cdi. Constitutional: WD/WN, vitals as above Results & Data ([place]) Vital Signs (Past 12 Hours) Vital Signs Temp Pulse Resp BP Pulse Ox 02/03/21 19:32 36.3 C L 76 18 132/59 L 94 02/03/21 17:14 36.7 C 58 L 18 122/55 L 91 02/03/21 15:34 36.3 C L 58 L 18 114/52 L 91 02/03/21 14:16 36 C L 58 L 18 101/62 90 02/03/21 13:27 36.6 C 62 16 100/58 L 94 02/03/21 13:00 60 13 111/49 L 94 02/03/21 12:45 56 L 13 111/45 L 91 02/03/21 12:30 64 17 115/46 L 93 02/03/21 12:20 65 18 106/49 L 93 02/03/21 12:10 36.2 C L 66 18 128/46 L 96 02/03/21 12:00 63 18 117/53 L 100 02/03/21 11:52 36.1 C L 63 18 126/40 L 100
[2021-02-04] MEDS: SODIUM CHLORIDE 0.9% 1000ML 1,000 ML IV SCH ×2 (01:06→08:29)
[2021-02-04] MEDS: ceFAZolin 1000MG 1,000 MG/7.5 ML SYR IV SCH (01:07)
[2021-02-04] MEDS: ACETAMINOPHEN 500 MG TAB PO SCH ×3 (05:08→21:14)
[2021-02-04 06:36] LABS: Basophils # (auto) 0.01 K/uL (0-0.2); Basophils % (auto) 0.1 %; Hematocrit (blood only) 36.6 % (37-47); Hemoglobin 11.8 g/dL (12.0-16.0); Immature Granulocytes # (auto) 0.06 K/uL (0.00-0.02); Immature Granulocytes % (auto) 0.3 %; Lymphocytes # (auto) 1.17 K/uL (1.2-3.4); Lymphocytes % (auto) 6.3 %; Mean Corpuscular Hemoglobin 30.8 pg (25-34); Mean Corpuscular Hgb Conc 32.2 g/dL (32-36); Mean Corpuscular Volume 95.6 fL (80-100); Mean Platelet Volume 9.9 fL (7.4-10.4); Monocytes # (auto) 1.15 K/uL (0.11-0.59); Monocytes % (auto) 6.2 %; Neutrophils # (auto) 16.17 K/uL (1.4-6.5); Neutrophils % (auto) 87.1 %; Platelet Count 242 K/uL (130-400); RDW Standard Deviation 49.1 fL (36.4-46.3); Red Blood Count 3.83 M/uL (4.2-5.4); White Blood Count 18.56 K/uL (4.8-10.8)
[2021-02-04 07:13] LABS: BUN Creatinine Ratio 18.6 (10-20); Calcium 8.1 mg/dl (8.5-10.1); Creatinine Clr Calc Pharmacy 23.9 ml/min; Est GFR (African American) 36.6 ml/min; Est GFR (Non-African American) 31.6 ml/min; Potassium 4.5 mmol/L (3.5-5.1)
--- NOTE | 2021-02-04 07:42 | Orthopedic Progress Note ---
Date of Service February 04, 2021 Assessment & Plan (1) Degenerative joint disease of left hip: s/p Left anterior LUBNA POD#1 -ancef x 24 -DVT ppx: SCDs, TEDs, Lovenox daily -WBAT LLE -PT/OT -PO XR demonstrates a well aligned well fixed prosthesis without fracture/dislocation -am labs - as above, hgb 11.8, cr 1.52, Continue to monitor, avoid nephrotoxic agents, encourage PO intake -DC planning - Home with home health versus rehab, patient family wished to go to rehab however patient is adamantly against going to rehab. I discussed with both family and patient would prefer patient go where she is safest if she qualifies to return to home I am supportive of that of her I recommended that the family and patient discuss further based off her needs. Admission and Anticipated Discharge Date Admission Date: February 03, 2021 Subjective Post Operative Progress Note Patient seen sitting up in bed, comfortable, denies complaints, pain well controlled, no acute issues. Denies F/C/N/V/SOB/CP. Review of Systems Review of Systems: All systems reviewed & are unremarkable except as noted in HPI & below Constitutional: as per Subjective / HPI Physical Exam Physical Exam: LLE NVSI +EHL/FHL/TA/GS SILT grossly, +2 DP pulse, compartments soft NT, dressing cdi. Constitutional: WD/WN, vitals as above Eyes: PERRL, conjunctivae normal, anicteric sclerae ENMT: external ear and nose normal, oropharynx normal Neck: trachea midline, no thyromegaly Respiratory: normal respiratory effort, lungs clear to auscultation Cardiovascular: RRR, no murmur, no edema Gastrointestinal (Abdomen): normal bowel sounds, soft, nontender, no hepatosplenomegaly Musculoskeletal: no cyanosis or clubbing, extremities motor strength 5/5 Skin: no rashes, warm and dry Neurologic: patellar DTR's 2+ bilat, sensation intact Psychiatric: A+Ox3, euthymic affect Lymphatic: no cervical or axillary lymphadenopathy Results & Data ([facility]) Vital Signs (Past 12 Hours) Vital Signs Temp Pulse Resp BP Pulse Ox 02/04/21 02:55 35.7 C L 65 16 106/48 L 92 02/03/21 23:08 36.6 C 68 17 105/50 L 93 Laboratory Results 02/04/21 02/04/21 Range/Units 06:13 06:13 WBC 18.56 H (4.8-10.8) K/uL RBC 3.83 L (4.2-5.4) M/uL Hgb 11.8 L (12.0-16.0) g/dL Hct 36.6 L (37-47) % MCV 95.6 (80-100) fL MCH 30.8 (25-34) pg MCHC 32.2 (32-36) g/dL RDW Std Deviation 49.1 H (36.4-46.3) fL RDW Coeff of Russel 14.0 (11.5-14.5) % Plt Count 242 (130-400) K/uL MPV 9.9 (7.4-10.4) fL Immature Gran % (Auto) 0.3 % Neut % (Auto) 87.1 % Lymph % (Auto) 6.3 % [place] % (Auto) 6.2 % Eos % (Auto) 0.0 % Baso % (Auto) 0.1 % Neut # (Auto) 16.17 H (1.4-6.5) K/uL Lymph # (Auto) 1.17 L (1.2-3.4) K/uL [place] # (Auto) 1.15 H (0.11-0.59) K/uL Eos # (Auto) 0.00 (0-0.5) K/uL Baso # (Auto) 0.01 (0-0.2) K/uL Immature Gran # (Auto) 0.06 H (0.00-0.02) K/uL Sodium 139 (136-145) mmol/L Potassium 4.5 (3.5-5.1) mmol/L Chloride 110 H (98-107) mmol/L Carbon Dioxide 23 (21-32) mmol/L Anion Gap 7.0 (3-11) BUN 28 H (7-18) mg/dl Creatinine 1.52 H (0.6-1.2) mg/dl Est Cr Clr Drug Dosing 23.9 ml/min Est GFR ( Amer) 36.6 ml/min Est GFR (Non-Af Amer) 31.6 ml/min BUN/Creatinine Ratio 18.6 (10-20) Glucose 157 H (70-99) mg/dl Calcium 8.1 L (8.5-10.1) mg/dl
[2021-02-04] MEDS: ENOXAPARIN INJ 30 MG/0.3 ML SYR SQ SCH (08:23)
[2021-02-04] MEDS: MULTIVITAMIN TAB PO SCH (08:24)
[2021-02-04] MEDS: LOSARTAN POTASSIUM 50 MG TAB PO SCH (08:24)
[2021-02-04] MEDS: METOPROLOL SUCC 25MG EXT REL TAB PO SCH (08:24)
[2021-02-04] MEDS: DOCUSATE SODIUM 100 MG CAP PO SCH ×2 (08:25→21:14)
[2021-02-04] MEDS: SIMVASTATIN 40 MG TAB PO SCH (21:13)
[2021-02-04] MEDS: SENNA 8.6 MG TAB PO SCH (21:14)
[2021-02-05] MEDS: SODIUM CHLORIDE 0.9% 1000ML 1,000 ML IV SCH (00:19)
[2021-02-05] MEDS: traMADol HCL 50 MG TABLET PO PRN (03:41)
[2021-02-05] MEDS: ACETAMINOPHEN 500 MG TAB PO SCH ×3 (05:05→23:17)
[2021-02-05 07:14] LABS: Hematocrit (blood only) 34.7 % (37-47); Hemoglobin 11.4 g/dL (12.0-16.0); Mean Corpuscular Hemoglobin 30.7 pg (25-34); Mean Corpuscular Hgb Conc 32.9 g/dL (32-36); Mean Corpuscular Volume 93.5 fL (80-100); Mean Platelet Volume 10.2 fL (7.4-10.4); Platelet Count 211 K/uL (130-400); RDW Coefficient of Variation 14.5 % (11.5-14.5); RDW Standard Deviation 49.7 fL (36.4-46.3); Red Blood Count 3.71 M/uL (4.2-5.4); White Blood Count 15.08 K/uL (4.8-10.8)
[2021-02-05 07:47] LABS: ANC (manual) 11.93 K/uL (1.4-6.5); Echinocytes 1+; Lymphocytes % (manual) 13.9 %; Monocytes # (manual) 1.06 K/uL (0.11-0.59); Neutrophils # (manual) 11.93 K/uL (1.4-6.5); Neutrophils % (manual) 79.1 %
[2021-02-05 07:51] LABS: BUN Creatinine Ratio 25.9 (10-20); Calcium 8.3 mg/dl (8.5-10.1); Creatinine Clr Calc Pharmacy 33.7 ml/min; Est GFR (African American) 55.4 ml/min; Est GFR (Non-African American) 47.8 ml/min; Potassium 4.7 mmol/L (3.5-5.1)
[2021-02-05] MEDS: METOPROLOL SUCC 25MG EXT REL TAB PO SCH (08:49)
[2021-02-05] MEDS: LOSARTAN POTASSIUM 50 MG TAB PO SCH (08:49)
[2021-02-05] MEDS: DOCUSATE SODIUM 100 MG CAP PO SCH ×2 (08:49→20:22)
[2021-02-05] MEDS: ENOXAPARIN INJ 30 MG/0.3 ML SYR SQ SCH (08:50)
[2021-02-05] MEDS: MULTIVITAMIN TAB PO SCH (08:50)
--- NOTE | 2021-02-05 09:16 | Orthopedic Progress Note ---
Date of Service February 05, 2021 Assessment & Plan (1) Degenerative joint disease of left hip: s/p Left anterior LUBNA POD#2 -ancef x 24, then dc -DVT ppx: SCDs, TEDs, Lovenox daily -WBAT LLE -PT/OT - Pt did well yesterday with her PT. She is unsure how she will do secondary to the increased activity during the night. We will see how she does today and decide on dc plans. -am labs - as above, Creat normalized, Continue to monitor, IV fluids dc'd, encourage PO intake -DC planning - Home with home health Admission and Anticipated Discharge Date Admission Date: February 03, 2021 Supervising Physician Co-Signing Physician Notes Patient seen and examined. She currently appears to be resting comfortably but says she is doing "terrible". It seems like this is mainly due to her not getting enough sleep last night with her IV pump beeping numerous times. She denies any pain in her hip, and has been ambulating very well, but she says her family advised her to stay another night. Plan for discharge home tomorrow. Subjective Postop day 2 Patient currently lying in bed awake and alert. She states that she had kind of a rough night with having to get up to the bathroom frequently secondary to IV fluids. This morning she is feeling stiff and tired. States that her pain is controlled. Denies shortness of breath, chest pain, lightheadedness. Repeat creatinine this morning was 1.08. She has no other complaints this morning. Physical Exam Physical Exam: Aubrie dressing is clean, dry, and intact. She has minimal bruising around the aubrie dressing. Thigh is soft and nontender. Calves are soft and nontender. Neurovascular is intact. Toes are mobile. Leg lengths appear equal. Results & Data ([facility]) Vital Signs (Past 12 Hours) Vital Signs Temp Pulse Resp BP Pulse Ox 02/05/21 07:11 36.3 C L 76 20 133/74 93 02/04/21 23:34 36.9 C 79 18 100/61 92 Laboratory Results Laboratory Results WBC 15.08 K/uL (4.8-10.8) H 02/05/21 06:36 RBC 3.71 M/uL (4.2-5.4) L 02/05/21 06:36 Hgb 11.4 g/dL (12.0-16.0) L 02/05/21 06:36 Hct 34.7 % (37-47) L 02/05/21 06:36 MCV 93.5 fL (80-100) 02/05/21 06:36 MCH 30.7 pg (25-34) 02/05/21 06:36 MCHC 32.9 g/dL (32-36) 02/05/21 06:36 RDW Std Deviation 49.7 fL (36.4-46.3) H 02/05/21 06:36 RDW Coeff of Russel 14.5 % (11.5-14.5) 02/05/21 06:36 Plt Count 211 K/uL (130-400) 02/05/21 06:36 MPV 10.2 fL (7.4-10.4) 02/05/21 06:36 Immature Gran % (Auto) 0.3 % 02/04/21 06:13 Neut % (Auto) 87.1 % 02/04/21 06:13 Lymph % (Auto) 6.3 % 02/04/21 06:13 [place] % (Auto) 6.2 % 02/04/21 06:13 Eos % (Auto) 0.0 % 02/04/21 06:13 Baso % (Auto) 0.1 % 02/04/21 06:13 Neut # (Auto) 16.17 K/uL (1.4-6.5) H 02/04/21 06:13 Lymph # (Auto) 1.17 K/uL (1.2-3.4) L 02/04/21 06:13 [place] # (Auto) 1.15 K/uL (0.11-0.59) H 02/04/21 06:13 Eos # (Auto) 0.00 K/uL (0-0.5) 02/04/21 06:13 Baso # (Auto) 0.01 K/uL (0-0.2) 02/04/21 06:13 Immature Gran # (Auto) 0.06 K/uL (0.00-0.02) H 02/04/21 06:13 Neutrophils % (Manual) 79.1 % 02/05/21 06:36 Lymphocytes % (Manual) 13.9 % 02/05/21 06:36 Monocytes % (Manual) 7.0 % 02/05/21 06:36 Neutrophils # (Manual) 11.93 K/uL (1.4-6.5) H 02/05/21 06:36 Total Absolute Neuts 11.93 K/uL (1.4-6.5) H 02/05/21 06:36 Lymphocytes # (Manual) 2.10 K/uL (1.2-3.4) 02/05/21 06:36 Total Abs Lymphocytes 2.10 K/uL (1.2-3.4) 02/05/21 06:36 Monocytes # (Manual) 1.06 K/uL (0.11-0.59) H 02/05/21 06:36 Echinocytes 1+ 02/05/21 06:36 Sodium 141 mmol/L (136-145) 02/05/21 06:36 Potassium 4.7 mmol/L (3.5-5.1) 02/05/21 06:36 Chloride 115 mmol/L (98-107) H 02/05/21 06:36 Carbon Dioxide 22 mmol/L (21-32) 02/05/21 06:36 Anion Gap 4.0 (3-11) 02/05/21 06:36 BUN 28 mg/dl (7-18) H 02/05/21 06:36 Creatinine 1.08 mg/dl (0.6-1.2) 02/05/21 06:36 Est Cr Clr Drug Dosing 33.7 ml/min 02/05/21 06:36 Est GFR ( Amer) 55.4 ml/min 02/05/21 06:36 Est GFR (Non-Af Amer) 47.8 ml/min 02/05/21 06:36 BUN/Creatinine Ratio 25.9 (10-20) H 02/05/21 06:36 Glucose 94 mg/dl (70-99) 02/05/21 06:36 Calcium 8.3 mg/dl (8.5-10.1) L 02/05/21 06:36 Specimen Hemolysis 02/05/21 06:36 COVID-19 Eval Order Covid19 [facility]Now [facility] 02/03/21 06:41 SARS-CoV-2, RNA, NAAT NEGATIVE (NEGATIVE) 02/03/21 06:41
[2021-02-05] MEDS: SENNA 8.6 MG TAB PO SCH (20:22)
[2021-02-05] MEDS: SIMVASTATIN 40 MG TAB PO SCH (20:22)
[2021-02-06] MEDS: traMADol HCL 50 MG TABLET PO PRN ×2 (01:23→07:46)
[2021-02-06] MEDS: ACETAMINOPHEN 500 MG TAB PO SCH ×2 (05:52→13:30)
[2021-02-06] MEDS: ENOXAPARIN INJ 30 MG/0.3 ML SYR SQ SCH (07:46)
[2021-02-06] MEDS: LOSARTAN POTASSIUM 50 MG TAB PO SCH (07:46)
[2021-02-06] MEDS: DOCUSATE SODIUM 100 MG CAP PO SCH (07:46)
[2021-02-06] MEDS: METOPROLOL SUCC 25MG EXT REL TAB PO SCH (07:46)
[2021-02-06] MEDS: MULTIVITAMIN TAB PO SCH (07:46)
[2021-02-06 08:19] LABS: Basophils # (auto) 0.03 K/uL (0-0.2); Basophils % (auto) 0.2 %; Eosinophils # (auto) 0.17 K/uL (0-0.5); Eosinophils % (auto) 1.4 %; Hematocrit (blood only) 35.5 % (37-47); Hemoglobin 11.6 g/dL (12.0-16.0); Immature Granulocytes # (auto) 0.14 K/uL (0.00-0.02); Immature Granulocytes % (auto) 1.2 %; Lymphocytes # (auto) 2.37 K/uL (1.2-3.4); Lymphocytes % (auto) 19.7 %; Mean Corpuscular Hemoglobin 30.7 pg (25-34); Mean Corpuscular Hgb Conc 32.7 g/dL (32-36); Mean Corpuscular Volume 93.9 fL (80-100); Mean Platelet Volume 10.4 fL (7.4-10.4); Monocytes # (auto) 1.38 K/uL (0.11-0.59); Monocytes % (auto) 11.5 %; Neutrophils # (auto) 7.95 K/uL (1.4-6.5); Platelet Count 237 K/uL (130-400); RDW Coefficient of Variation 14.6 % (11.5-14.5); RDW Standard Deviation 49.8 fL (36.4-46.3); Red Blood Count 3.78 M/uL (4.2-5.4); White Blood Count 12.04 K/uL (4.8-10.8)
[2021-02-06 08:42] LABS: BUN Creatinine Ratio 26.1 (10-20); Calcium 8.5 mg/dl (8.5-10.1); Creatinine Clr Calc Pharmacy 41.3 ml/min; Est GFR (African American) 70.9 ml/min; Est GFR (Non-African American) 61.2 ml/min; Potassium 4.3 mmol/L (3.5-5.1)
--- NOTE | 2021-02-06 09:56 | Orthopedic Progress Note ---
Date of Service February 06, 2021 Assessment & Plan (1) Degenerative joint disease of left hip: s/p Left anterior LUBNA POD#3 -ancef x 24, then dc -DVT ppx: SCDs, TEDs, Lovenox daily -WBAT LLE -PT/OT - Pt did well yesterday with her PT. She is unsure how she will do secondary to the increased activity during the night. We will see how she does today and decide on dc plans. -am labs - as above, Creat normalized, WBC continues to come down. encourage PO intake -DC planning -I have discussed her case with case management. She will not [facility]. She will talk to her about a skilled facility. We will recheck on her today after her physical therapy has been done to see how well she has done. Plan for skilled facility versus home with home health. Admission and Anticipated Discharge Date Admission Date: February 03, 2021 Subjective Postop day 3 Patient sleeping upon arrival. Easily awoken. Patient states she is having some concerns about going home. She states that she is having a little bit of difficulty getting started with her ambulation however when she gets going, she is able to go about her daily chores here at the hospital. She talks to family who I think is hoping that she would try for a skilled facility. We discussed that she can do physical therapy today and see how she does. If she is doubling her ambulation distance and she is already independent with her ADLs, we discussed that she may not qualify for a skilled facility. She understands that. Physical Exam Physical Exam: [place] dressing is clean, dry, and intact. Thigh is soft and nontender. Calves are soft and nontender. Neurovascular is intact toes are mobile and leg lengths appear equal. Results & Data ([facility]) Vital Signs (Past 12 Hours) Vital Signs Temp Pulse Resp BP Pulse Ox 02/06/21 07:42 36.8 C 76 16 128/70 93 02/05/21 23:48 36.7 C 73 17 123/70 95 Laboratory Results 02/06/21 02/06/21 Range/Units 07:44 07:44 WBC 12.04 H (4.8-10.8) K/uL RBC 3.78 L (4.2-5.4) M/uL Hgb 11.6 L (12.0-16.0) g/dL Hct 35.5 L (37-47) % MCV 93.9 (80-100) fL MCH 30.7 (25-34) pg MCHC 32.7 (32-36) g/dL RDW Std Deviation 49.8 H (36.4-46.3) fL RDW Coeff of Russel 14.6 H (11.5-14.5) % Plt Count 237 (130-400) K/uL MPV 10.4 (7.4-10.4) fL Immature Gran % (Auto) 1.2 % Neut % (Auto) 66.0 % Lymph % (Auto) 19.7 % [place] % (Auto) 11.5 % Eos % (Auto) 1.4 % Baso % (Auto) 0.2 % Neut # (Auto) 7.95 H (1.4-6.5) K/uL Lymph # (Auto) 2.37 (1.2-3.4) K/uL [place] # (Auto) 1.38 H (0.11-0.59) K/uL Eos # (Auto) 0.17 (0-0.5) K/uL Baso # (Auto) 0.03 (0-0.2) K/uL Immature Gran # (Auto) 0.14 H (0.00-0.02) K/uL Sodium 138 (136-145) mmol/L Potassium 4.3 (3.5-5.1) mmol/L Chloride 109 H (98-107) mmol/L Carbon Dioxide 24 (21-32) mmol/L Anion Gap 5.0 (3-11) BUN 23 H (7-18) mg/dl Creatinine 0.88 (0.6-1.2) mg/dl Est Cr Clr Drug Dosing 41.3 ml/min Est GFR ( Amer) 70.9 ml/min Est GFR (Non-Af Amer) 61.2 ml/min BUN/Creatinine Ratio 26.1 H (10-20) Glucose 89 (70-99) mg/dl Calcium 8.5 (8.5-10.1) mg/dl
--- NOTE | 2021-02-06 22:19 | Discharge Summary ---
Date of Service February 06, 2021 Admission HPI Per Admitting Provider The patient is a 80 year old female who presents with complaints of severe left hip pain and DJD. The patient has failed outpatient conservative treatments to this point which included NSAIDs, IA corticosteroid injection, home exercise/walking program. The patient's pain and limited function have progressed to the point where they severely hinder their activities of daily living and they no longer tolerate exercise programs. They are requesting to proceed with total hip replacement surgery. Principal Diagnosis Left anterior total hip replacement Discharge Exam LLE NVSI +EHL/FHL/TA/GS SILT grossly, +2 DP pulse, compartments soft NT, dressing cdi. Constitutional WD/WN, vitals as above Discharge Data Allergies Allergy/AdvReac Type Severity Reaction Status Date / Time adhesive Allergy Unknown Skin Verified 02/03/21 06:53 irritation with tape propoxyphene AdvReac Unknown Nausea Verified 02/03/21 06:53 amoxicillin AdvReac Nausea Verified 02/03/21 06:53 Opioid Analgesics AdvReac Unknown Dizziness Uncoded 02/03/21 06:53 Procedures Performed Operation Date: 02/03/21 09:20 Actual Procedures p Left Anterior Total Hip Arthroplasty(Left) - Boubacar Garcia DO Ordered Studies 02/03/21 09:20 FL hip LT 1V Routine Hospital Course (1) Degenerative joint disease of left hip: The patient is a 80 -year-old female who presents with long standing history of severe left hip DJD and failed outpatient conservative treatments. The patient's symptoms have progressed to the point where it has been difficult to perform even normal activities of daily living. I indicated the patient for a left anterior total hip arthroplasty, the risks, benefits and complications of the procedure include but not limited to infection, bleeding, damage to bone, nerves, vessels, surrounding soft tissue, may develop blood clots, loss of function, leg length discrepancy, dislocation, failure of the components, loosening of the components, the need for additional surgery and . The patient wished to proceed with surgery at this time and informed consent was obtained. Hospital Course: On 02/03/21 the patient was taken to the operating room, adequate anesthesia administered and underwent a left anterior total hip arthroplasty. The patient tolerated the procedure well and was taken to the PACU in stable condition. Post-operatively the patient was started on a DVT ppx medication and given appropriate IV antibiotics. Consults were placed to physical therapy, occupational therapy and case management. POD#1 -ancef x 24 -DVT ppx: Talha Rodriguez, Lovenox daily -WBAT LLE -PT/OT -PO XR demonstrates a well aligned well fixed prosthesis without fracture/dislocation -am labs - as above, hgb 11.8, cr 1.52, Continue to monitor, avoid nephrotoxic agents, encourage PO intake -DC planning - Home with home health versus rehab, patient family wished to go to rehab however patient is adamantly against going to rehab. I discussed with both family and patient would prefer patient go where she is safest if she qualifies to return to home I am supportive of that of her I recommended that the family and patient discuss further based off her needs. POD#2 -ancef x 24, then dc -DVT ppx: Talha Rodriguez Lovenox daily -WBAT LLE -PT/OT - Pt did well yesterday with her PT. She is unsure how she will do secondary to the increased activity during the night. We will see how she does today and decide on dc plans. -am labs - as above, Creat normalized, Continue to monitor, IV fluids dc'd, encourage PO intake -DC planning - Home with home health POD#3 -ancef x 24, then dc -DVT ppx: Talha Rodriguez Lovenox daily -WBAT LLE -PT/OT - Pt did well yesterday with her PT. She is unsure how she will do secondary to the increased activity during the night. We will see how she does today and decide on dc plans. -am labs - as above, Creat normalized, WBC continues to come down. encourage PO intake -DC planning -I have discussed her case with case management. She will not qualify for [facility]. She will talk to her about a skilled facility. We will recheck on her today after her physical therapy has been done to see how well she has done. Plan for skilled facility versus home with home health. The patients hospital stay was relatively uneventful and they were deemed stable by the orthopedic team and consultants to be discharged home with on 02/06/21. Discharge Instructions: Upon discharge the patient may weight bear as tolerates through their operative extremity. They were instructed to keep the incision clean and dry at all times. The patient may shower but should not submerge the incision, avoid bathing, pools and hot tubs. The patient was given a script for pain medication and should take as instructed. The patient was given a script for DVT ppx lovenox and should take as directed. The patient was instructed to not drive or travel for long distances until cleared to do so. If the patient develops any symptoms of fevers, chills, nausea, vomiting, increased redness, swelling, pain or drainage from the surgical site, they should notify the office and/or proceed to the nearest emergency room. The patient should follow up in 10-14 days after surgery for their routine post-operative follow-up appointment and should call the office, to confirm the date and time. Total Time Total Time Spent Total Time Spent (In Minutes): >60 Discharge Plan Discharge Items Patient Disposition: Home - Home Health Services Reason For Visit: Unilateral Primary Osteoarthritis Discharge Diagnosis: Left anterior total hip replacement Condition on Discharge: Good Activity: Per Instructions section Lifting: Wait until after follow-up appointment Bathing: Keep incision dry Bathing Comment: No bathing, pools or hot tubs. Sexual Activity: Wait until after follow-up appointment Exercise/Sports: Wait until after follow-up appointment Driving/Machine Use: No driving. Weightbearing: Full weightbearing Non-emergency contact: Primary Care Provider and Surgeon Call non-emergency contact if: you have any medication questions, your pain is not controlled, your pain is unusual for you, you have a fever, your wound has increased redness, your wound has increased drainage and your wound pain has increased Follow-up/Referrals: Rickie Sapp MD [Primary Care Provider] - Diet: Regular Addtl Attending Provider Instructions: ACTIVITY RECOMMENDATIONS: SELF CARE INSTRUCTIONS AFTER TOTAL HIP REPLACEMENT : Direct Anterior Approach Until the incision and soft tissues around your hip have healed, there is a possibility that the hip prosthesis could dislocate. A. Hip flexion ( Up & Down out of chair or steps ) may be difficult. This is normal. B. Numbness in front of the thigh is also normal for a few weeks. C. Use hand rails when walking on stairs. D. Wear low heeled shoes with non-slip soles. E. Be sure that your floors are free of things that could trip you - throw rugs, electrical cords, small objects. Avoid wet and waxed floors, especially with crutches and canes. F. Try to walk several times a day with rest periods between. G. Continue with all the exercises taught to you in the hospital. Again, make walking a part of your daily routine. SPECIAL CARE INSTRUCTIONS: VERY IMPORTANT TO READ AND REVIEW A. You may still be at risk for phlebitis and blood clots. 1. Wear surgical stockings (YANNI hose) for 2 weeks after surgery to improve circulation and reduce swelling. 2. Take Lovenox 40mg daily for 4 weeks or as directed by your doctor. This is your blood thinner. 3. High risk patients may be prescribed a stronger blood thinner if necessary. 4. If you are on Coumadin normally, your family doctor/director of therapy services should monitor your blood work. Expect a phone call the day of or the day after bloodwork is drawn to adjust your dosage. B. You must take antibiotics before having dental work, bladder, bowel and other surgery. Your doctor will provide you with a permanent card to carry describing precautions. C. Call [facility] if you have a fever, redness or swelling around the incision, cloudy drainage from incision, or sudden increase in pain in your hip, not relieved by your regular pain medication. D. Please call the office at if you have any concerns or questions about your operation or recovery. * YOU MAY SHOWER, NO TUB BATHS UNTIL CLEARED BY YOUR DOCTOR. - Keep an extra close eye on the top portion of your incision. Be sure to keep clean & dry. * WEAR YANNI HOSE 20 HOURS PER DAY FOR 2 WEEKS. * YOU MAY PROGRESS FROM A WALKER, TO A CANE, TO INDEPENDENT AT YOUR OWN PACE. * MOST PATIENTS WILL HAVE HOME NURSING FOR THERAPY. IF YOU DECIDE TO DO OUTPATIENT PHYSICAL THERAPY, PLEASE SCHEDULE THIS 3 TIMES PER WEEK. *PADMINI incisional vac is a special dressing covering your incision. This dressing provides a sterile dry environment while you are healing. The dressing is to be left in place for 7 days post-operatively. Your home nurse or surgeon will remove. If you develop any redness or blisters or have any questions notify your surgeon immediately. FOLLOW UP VISIT: If appointment is not already scheduled: Please call [facility] to make a follow-up appointment for 2 weeks after your surgery at . Pending Studies at Discharge: No Stand-Alone Forms: My [facility] [employer], Opioid Pain Management, Smoking Cessation Medications and DC Order Prescriptions: New enoxaparin [Lovenox] 30 mg/0.3 mL Syringe 30 mg subcut Q24H Qty: 28 RF: 0 tramadol 50 mg Tablet 50 - 100 mg PO Q6H PRN (Reason: pain) Qty: 30 RF: 0 acetaminophen 500 mg Tablet 1,000 mg PO Q8 PRN (Reason: pain/fevers) Qty: 90 RF: 0 sennosides [Senokot] 8.6 mg Tablet 17.2 mg PO HS Qty: 28 RF: 0 Continued (DME) [facility] See Dose Instructions .ROUTE .MEDSUPPLY Qty: 2 RF: 0 (DME) miscellaneous medical supply [facility] [place] See Dose Instructions .ROUTE .MEDSUPPLY Qty: 1 RF: 0 simvastatin 40 mg tablet 40 mg PO HS Qty: 90 RF: 3 cholecalciferol (vitamin D3) 5,000 unit tablet 5,000 units PO QAM RF: 0 glucosam mcmanus [id number] mg Capsule 1 cap PO BID RF: 0 metoprolol succinate 25 mg tablet extended release 24 hr 25 mg PO QAM RF: 0 losartan 100 mg tablet 100 mg PO QAM RF: 0 multivitamin Tablet 1 tab PO QAM RF: 0 Discontinued ibuprofen 200 mg Capsule 200 mg PO Q6H PRN (Reason: Pain) RF: 0 acetaminophen [Tylenol Extra Strength] 500 mg Capsule 500 mg PO Q6H PRN (Reason: Pain) RF: 0 aspirin [Aspir-81] 81 mg Tablet,Delayed Release (Dr/Ec) 81 mg PO QAM RF: 0 Discharge Orders: Discharge Order (Routine); Ordered 02/06/21 Ordered By: Mark Ahumada/Other Patient Handouts: DVT Post Op Prevention, Giving a Subcutaneous Sub-Q ..., ED Zainab Jin Admission Data Admit Date/Time: 02/06/21 09:51 Attending Provider: Boubacar Garcia Admit Provider: Boubacar Garcia Primary Care Provider: Rickie Sapp Other Providers: [facility],Home Health Other Interventions: Discharge Summary Assessment (RN) Last Done: 02/06/21 13:13
== END 2021-02-06 15:33 | disposition home health service (06) | DRG 470 ==
LOC: ASU 06:27 → 3N 06:27

== ENCOUNTER 2021-12-22 14:50 | Inpatient (IN) ==
[2021-12-22] MEDS ORDERED: NITROGLYCERIN 2% OINTMENT 30GM TUBE EXT STA (15:15)
[2021-12-22] MEDS ORDERED: NITROGLYCERIN SL 0.4 MG/TAB TAB SL STA (15:15)
[2021-12-22] MEDS ORDERED: ASPIRIN CHEW 324 MG PO STA (15:15)
[2021-12-22 15:43] LABS: Basophils # (auto) 0.04 K/uL (0-0.2); Basophils % (auto) 0.5 %; Eosinophils # (auto) 0.08 K/uL (0-0.5); Hemoglobin 13.7 g/dL (12.0-16.0); Immature Granulocytes # (auto) 0.04 K/uL (0.00-0.02); Immature Granulocytes % (auto) 0.5 %; Lymphocytes # (auto) 2.62 K/uL (1.2-3.4); Lymphocytes % (auto) 32.8 %; Mean Corpuscular Hemoglobin 33.9 pg (25-34); Mean Corpuscular Hgb Conc 33.4 g/dL (32-36); Mean Corpuscular Volume 101.5 fL (80-100); Mean Platelet Volume 10.4 fL (7.4-10.4); Monocytes # (auto) 0.77 K/uL (0.11-0.59); Monocytes % (auto) 9.6 %; Neutrophils # (auto) 4.45 K/uL (1.4-6.5); Neutrophils % (auto) 55.6 %; Platelet Count 261 K/uL (130-400); RDW Coefficient of Variation 13.4 % (11.5-14.5); RDW Standard Deviation 50.2 fL (36.4-46.3); Red Blood Count 4.04 M/uL (4.2-5.4)
--- NOTE | 2021-12-22 16:00 | Emergency Department Note ---
Impression & Plan Chest pain, precordial, Acute electrocardiogram changes ED Provider Note INFORMANT: Patient ED PROVIDER(S): Stiven Taveras MD CHIEF COMPLAINT: Chest pain PLAN: Disposition: Admitted none Condition: Good Outpatient prescription management: none Referral: None MEDICAL DECISION MAKING: Patient presented because of chest pain that radiated to her back. She has a concerning family history and her ECG is abnormal. Patient was given nitroglycerin and aspirin. Blood work and chest x-ray was performed. Patient's blood work and troponin were negative. She was feeling much better after nitroglycerin with resolution of symptoms. Given the situation she will need further management in the hospital. Consultation was made with Dr. Trey Ramirez of the [facility] service. Patient was evaluated in the ER for further management. Triage Nursing notes reviewed and agree them. Vital Signs: reviewed and remarkable for mild tachycardia and hypertension Differential diagnosis: Cardiac ischemia, aortic dissection, pulmonary embolism, pneumothorax, pneumonia, pericarditis, myocarditis, esophageal rupture, GERD, cholecystitis, pancreatitis, musculoskeletal, as well as other pathologies. Diagnostics interpreted by me: ECG: Twelve-lead ECG reveals a sinus tachycardia 115 bpm. There is anterolateral ST depressions. When compared to February 2021 the T wave inversions appear to have resolved however the ST depressions are new. Cardiac Monitoring: Cardiac monitoring ordered by me: The patient was placed on continuous cardiac monitoring and observed. It revealed a normal sinus rhythm at 70 beats per minute without ectopy or evidence of dysrhythmia. Imaging studies: Chest x-ray. Findings: A chest x-ray was performed and revealed no pneumothorax, effusion, infiltrate, pulmonary edema, free air under the diaphragm, or wide mediastinum. Impression: No acute disease. HPI: The patient is a 81year old female who presents to the Emergency Room with complaints of precordial chest pain. This started today and is radiating between the shoulder blades and to the jaw. The patient also notes the following associated symptoms, mild cough. The patient has tried Tylenol for relieving factors. Current pain is rated as 5/10. No personal cardiac history. Patient has a family history of coronary disease.Pt denies LOC, headache, fevers, chills, diaphoresis, visual changes, neck pain, breathing difficulties, nausea, vomiting, abdominal pain, lower back pain, melena, hematochezia, urinary symptoms, numbness, weakness, lymphadenopathy, rash, or other complaints. ROS: See above HPI for pertinent positives & negatives. A total of 10 systems re viewed and were otherwise negative. PAST MEDICAL HISTORY:See Below , hypertension, hyperlipidemia PAST SURGICAL HISTORY:See Below, FAMILY HISTORY:See Below SOCIAL HISTORY:See Below, former smoker HOME MEDICATIONS:See Below ALLERGIES:See Below VITALS:See Below PHYSICAL EXAMINATION: GENERAL: Awake, alert, well-appearing, in no distress HENT: Normocephalic, atraumatic. Oropharynx unremarkable. EYES: Normal conjunctiva. Sclera non-icteric. NECK: Inspection normal. Non-tender. Supple. No nuchal rigidity. FROM. No masses. RESPIRATORY: Clear to auscultation. No wheezes. No rales. Normal respiratory effort. CARDIAC: Normal rate. Normal rhythm. No murmurs. No rubs. Extremities warm and well perfused. Pulses equal. No JVD. GI: Soft, non-distended. No tenderness to palpation. No rebound or guarding. No masses. RECTAL: Deferred. MUSCULOSKELETAL: Atraumatic. Chest examination reveals no tenderness. The back is symmetrical on inspection without obvious abnormality. There is no CVA tenderness to palpation. No joint edema. LOWER EXTREMITIES: Calves are equal size bilaterally and non-tender. No edema. No discoloration. NEURO: Normal sensorium. No sensory or motor deficits noted. SKIN: No rash or jaundice noted. Stiven Taveras MD Past Med/Surg History Medical History (Updated 12/22/21 @ 16:50 by Trey Ramirez MD) Aortic stenosis Mild to moderate aortic stenosis (LEONORA 1.5cm2, MG 10.8mmhg) per 12/2018 echo Arthritis Cancer Left breast s/p left mastectomy (/ limb restriction) Carotid stenosis s/p Right CEA (2013) CKD (chronic kidney disease), stage III PCP monitoring Diverticular disease remote colon resection 2/2 diverticulitis Hearing loss Hyperacusis of both ears Hyperlipidemia Hypertension Memory impairment Osteoarthritis Pulmonary embolism Post-op (cystoscopy 17+ years ago)- previously on AC/since discontinued Surgical History H/O cystoscopy History of bilateral tubal ligation History of cataract surgery History of CEA (carotid endarterectomy) History of cholecystectomy History of colonoscopy History of hip replacement History of modified radical mastectomy of left breast History of partial colectomy History of total abdominal hysterectomy and bilateral salpingo-oophorectomy Family History Mother Cardiac disorder Father Cardiac disorder Sister Myocardial infarction Stroke syndrome Denies family history of Ovarian cancer Prostate cancer Breast cancer Colorectal cancer Social History (Updated 11/17/21 @ 10:53 by Carol Morel MA) Smoking Status: Former smoker Tobacco Type: Cigarettes Age Started Using Tobacco: 19; Age Quit Using Tobacco: 60; packs per day: 0.75; Second Hand Exposure: No; Hx Alcohol Use: No Hx Substance Use: No Preferred Language: Belarusian Communication Ability: Effective Visual Impairment: No Limitations Hearing Ability: Use of Hearing Aid Special Agent In Charge Required: No Beliefs That Will Affect Care: None marital status: / Current Living Situation: Alone Current Living Situation Comment: has a [employer] alert and has a lively phone as well at home current occupational status: retired current occupation: she used to work for the [employer], now Richard Feels Safe at Home: Yes Safety Concerns: Feels Safe At This Time Childhood Exposure to Second-Hand Smoke: Yes Diet Comment: salads and veges caffeine: Yes (coffee) Dental Care, Regularly: Yes Physical Activity Frequency: Does not Exercise Seatbelt Use: always Sunscreen Use: No Assistive Devices: Cane, Glasses and Hearing Aid - Bilateral Allergies Allergies Allergy/AdvReac Type Severity Reaction Status Date / Time adhesive Allergy Mild Skin Verified 12/22/21 15:51 irritation with tape amoxicillin AdvReac Intermediate Nausea Verified 12/22/21 15:51 propoxyphene AdvReac Intermediate Nausea Verified 12/22/21 15:51 Opioid Analgesics AdvReac Intermediate Dizziness Uncoded 12/22/21 15:51 Home Meds Home Medications Medication Instructions Recorded Confirmed cholecalciferol (vitamin D3) 125 5,000 units PO QAM tab 02/21/19 12/22/21 mcg (5,000 unit) tablet multivitamin 1 tab PO QAM 01/06/21 12/22/21 Bacillus coagulans 400 million 400 cell PO QAM 05/26/21 12/22/21 cell chewable tablet (Digestive Advantage Probiotics-Prebiotic) aspirin 81 mg tablet,delayed 81 mg PO DAILY 12/22/21 12/22/21 release Previous Rx's Medication Instructions Recorded Prosthetic Mastectomy Bra #2 ea 06/04/19 miscellaneous medical supply #1 ea 06/04/19 acetaminophen 500 mg tablet 1,000 mg PO Q8 PRN #90 tab 02/03/21 metoprolol succinate 25 mg 25 mg PO QAM #90 tab 05/04/21 tablet,extended release 24 hr simvastatin 40 mg tablet 40 mg PO HS #90 tab 06/02/21 losartan 100 mg tablet 100 mg PO QAM #90 tab 09/24/21 levothyroxine 75 mcg tablet 75 mcg PO DAILY #30 tab 11/20/21 Results & Data (ED) Vital Signs Vital Signs - 24 hr 12/22/21 14:50 12/22/21 14:52 12/22/21 15:16 Temperature 36.7 C Temperature Source Temporal Artery Scan Pulse Rate 125 H Pulse Rate [Apical] 79 Pulse Rhythm Regular Pulse Rhythm [Apical] Regular Pulse Strength Normal Respiratory Rate 18 20 Respiratory Effort / Characteristics Non-Labored Spontaneous Respiratory Depth Normal Normal Respiratory Pattern Regular Blood Pressure 174/70 H Blood Pressure [Left Arm] 174/58 H Blood Pressure Mean 104 Blood Pressure Mean [Left Arm] 96 Blood Pressure Position Sitting Pulse Oximetry 96 94 96 Oxygen Delivery Method Room Air Room Air Room Air Sepsis Recent Fever Within 48 Hours No Sepsis New/Unexplained Change in Mental Status N/A Sepsis Action Taken by Nursing No Action Required 12/22/21 16:48 Temperature Temperature Source Pulse Rate Pulse Rate [Apical] 67 Pulse Rhythm Pulse Rhythm [Apical] Regular Pulse Strength Respiratory Rate 18 Respiratory Effort / Characteristics Respiratory Depth Respiratory Pattern Blood Pressure Blood Pressure [Left Arm] 117/63 Blood Pressure Mean Blood Pressure Mean [Left Arm] 81 Blood Pressure Position Pulse Oximetry 96 Oxygen Delivery Method Room Air Sepsis Recent Fever Within 48 Hours Sepsis New/Unexplained Change in Mental Status Sepsis Action Taken by Nursing Laboratory Data Result diagrams: 12/22/21 15:20 12/22/21 15:20 Lab Results 12/22/21 12/22/21 12/22/21 Range/Units 15:20 15:20 15:20 WBC 8.00 (4.8-10.8) K/uL RBC 4.04 L (4.2-5.4) M/uL Hgb 13.7 (12.0-16.0) g/dL Hct 41.0 (37-47) % MCV 101.5 H (80-100) fL MCH 33.9 (25-34) pg MCHC 33.4 (32-36) g/dL RDW Std Deviation 50.2 H (36.4-46.3) fL RDW Coeff of Russel 13.4 (11.5-14.5) % Plt Count 261 (130-400) K/uL MPV 10.4 (7.4-10.4) fL Immature Gran % (Auto) 0.5 % Neut % (Auto) 55.6 % Lymph % (Auto) 32.8 % [place] % (Auto) 9.6 % Eos % (Auto) 1.0 % Baso % (Auto) 0.5 % Neut # (Auto) 4.45 (1.4-6.5) K/uL Lymph # (Auto) 2.62 (1.2-3.4) K/uL [place] # (Auto) 0.77 H (0.11-0.59) K/uL Eos # (Auto) 0.08 (0-0.5) K/uL Baso # (Auto) 0.04 (0-0.2) K/uL Immature Gran # (Auto) 0.04 H (0.00-0.02) K/uL Sodium 139 (136-145) mmol/L Potassium 3.9 (3.5-5.1) mmol/L Chloride 106 (98-107) mmol/L Carbon Dioxide 23 (21-32) mmol/L Anion Gap 10 (3-11) BUN 26 H (6-23) mg/dl Creatinine 1.23 H (0.6-1.2) mg/dl Est Cr Clr Drug Dosing 30.8 ml/min Est GFR ( Amer) 47.0 ml/min Est GFR (Non-Af Amer) 40.5 ml/min BUN/Creatinine Ratio 21.1 H (10-20) Glucose 196 H (70-99(Fasting)) mg/dl Calcium 9.9 (8.5-10.1) mg/dl Total Bilirubin 0.5 (0.2-1.0) mg/dl AST 54 H (13-39) U/L ALT 41 (7-52) U/L Alkaline Phosphatase 78 (34-104) U/L Troponin I High Sens 10.3 (0-14) pg/ml Total Protein 7.4 (6.0-8.3) gm/dl Albumin 4.3 (3.4-5.0) gm/dl Globulin 3.1 (2.5-4.0) gm/dl Albumin/Globulin Ratio 1.4 (0.9-2) Lipase 25 (11-82) U/L SARS-CoV-2, RNA, NAAT (NEGATIVE) 12/22/21 Range/Units 15:20 WBC (4.8-10.8) K/uL RBC (4.2-5.4) M/uL Hgb (12.0-16.0) g/dL Hct (37-47) % MCV (80-100) fL MCH (25-34) pg MCHC (32-36) g/dL RDW Std Deviation (36.4-46.3) fL RDW Coeff of Russel (11.5-14.5) % Plt Count (130-400) K/uL MPV (7.4-10.4) fL Immature Gran % (Auto) % Neut % (Auto) % Lymph % (Auto) % [place] % (Auto) % Eos % (Auto) % Baso % (Auto) % Neut # (Auto) (1.4-6.5) K/uL Lymph # (Auto) (1.2-3.4) K/uL [place] # (Auto) (0.11-0.59) K/uL Eos # (Auto) (0-0.5) K/uL Baso # (Auto) (0-0.2) K/uL Immature Gran # (Auto) (0.00-0.02) K/uL Sodium (136-145) mmol/L Potassium (3.5-5.1) mmol/L Chloride (98-107) mmol/L Carbon Dioxide (21-32) mmol/L Anion Gap (3-11) BUN (6-23) mg/dl Creatinine (0.6-1.2) mg/dl Est Cr Clr Drug Dosing ml/min Est GFR ( Amer) ml/min Est GFR (Non-Af Amer) ml/min BUN/Creatinine Ratio (10-20) Glucose (70-99(Fasting)) mg/dl Calcium (8.5-10.1) mg/dl Total Bilirubin (0.2-1.0) mg/dl AST (13-39) U/L ALT (7-52) U/L Alkaline Phosphatase (34-104) U/L Troponin I High Sens (0-14) pg/ml Total Protein (6.0-8.3) gm/dl Albumin (3.4-5.0) gm/dl Globulin (2.5-4.0) gm/dl Albumin/Globulin Ratio (0.9-2) Lipase (11-82) U/L SARS-CoV-2, RNA, NAAT NEGATIVE (NEGATIVE) Administered Medications Heparin Sodium/Dextrose (Heparin Sodium/Dextrose) 25,000 units in 500 mls @ 20 mls/hr IV .Q24H [facility]; Protocol Stop: 01/21/22 21:14 Last Admin: 12/22/21 22:11 Dose: 1,000 units/hr, 20 mls/hr Documented by: [id number] Cosigned by: [id number] Insulin Aspart (Insulin Aspart Per Unit) 0 units SC ACHS NICOLE Stop: 01/21/22 20:59 Last Admin: 12/22/21 20:07 Dose: Not Given Documented by: [id number] Cosigned by: [id number] Simvastatin (Simvastatin 40 Mg Tab) 40 mg PO HS NICOLE Stop: 01/21/22 20:59 Last Admin: 12/22/21 20:06 Dose: 40 mg Documented by: [id number] Discontinued Medications Aspirin (Aspirin Chew 324 Mg) 243 mg PO NOW STA Stop: 12/22/21 15:16 Last Admin: 12/22/21 15:35 Dose: 243 mg Documented by: [id number] Furosemide (Furosemide Inj 20 Mg/2 Ml Vial) 10 mg IV ONE ONE Stop: 12/22/21 19:30 Last Admin: 12/22/21 20:05 Dose: 10 mg Documented by: [id number] Heparin Sodium (Porcine) (Heparin Sod (Porcine) 1000 Unit/Ml) 3,000 units IV NOW ONE Stop: 12/22/21 21:20 Last Admin: 12/22/21 22:10 Dose: 3,000 units Documented by: [id number] Cosigned by: [id number] Heparin Sodium (Porcine) 4,000 (units/ Syringe) 4 mls @ 10 mls/min IV NOW ONE Stop: 12/22/21 21:16 Last Admin: 12/22/21 21:42 Dose: Not Given Documented by: [id number] Nitroglycerin (Nitroglycerin 2% Ointment 30gm Tube) 0.5 inch EXT NOW STA Stop: 12/22/21 15:16 Last Admin: 12/22/21 15:35 Dose: 0.5 inch Documented by: [id number] Nitroglycerin (Nitroglycerin Sl 0.4 Mg/Tab Tab) 0.4 mg SL NOW STA Stop: 12/22/21 15:16 Last Admin: 12/22/21 15:35 Dose: 0.4 mg Documented by: [id number] Imaging Data Radiologist's Impression: Chest X-Ray 12/22/21 15:06 SINGLE VIEW CHEST CLINICAL HISTORY: Atypical chest pain. FINDINGS: 2 AP, portable, upright chest radiographs are compared to study dated 01/14/2021 and correlated with chest CT dated 11/24/2015. The heart is enlarged noting atherosclerotic calcification of the thoracic aorta. There is prominence of the pulmonary vasculature. Emphysema and chronic interstitial thickening is similar to previous. Mild scarring/atelectasis is noted at the lung bases. No airspace consolidation or large pleural effusion is identified. No pneumothorax is seen. The bony thorax is grossly intact. Surgical clips project over the right upper quadrant. Surgical clips also project over the left chest wall and the left axilla. IMPRESSION: 1. Cardiomegaly and emphysema with prominence of the pulmonary vasculature. Correlate clinically for evidence of fluid overload/congestive change. 2. No airspace consolidation or large pleural effusion is identified. ACT 112: Negative or not required by law. Electronically signed by: Evangelista Sal M.D. 12/22/2021 4:33 PM Discharge Plan Visit Data Chief Complaint: Chest Pain Stated Complaint: CHEST PAIN & ACROSS BOTH SHOULDERS & BACK ED Provider: Stiven Taveras Discharge Problem: Chest pain, precordial, Acute electrocardiogram changes Patient Disposition: Admitted As Inpatient Discharge Instructions Interventions: ED Discharge Assessment Last Done: 12/22/21 18:45
[2021-12-22 16:03] LABS: Albumin Globulin Ratio 1.4 (0.9-2); Albumin Level 4.3 gm/dl (3.4-5.0); BUN Creatinine Ratio 21.1 (10-20); Bilirubin,Total 0.5 mg/dl (0.2-1.0); Calcium 9.9 mg/dl (8.5-10.1); Creatinine Clr Calc Pharmacy 30.8 ml/min; Est GFR (Non-African American) 40.5 ml/min; Globulin 3.1 gm/dl (2.5-4.0); Potassium 3.9 mmol/L (3.5-5.1); Total Protein 7.4 gm/dl (6.0-8.3)
--- NOTE | 2021-12-22 16:35 | XRay Report ---
SINGLE VIEW CHEST CLINICAL HISTORY: Atypical chest pain. FINDINGS: 2 AP, portable, upright chest radiographs are compared to study dated 01/14/2021 and correlat ed with chest CT dated 11/24/2015. The heart is enlarged noting atherosclerotic calcification of the t horacic aorta. There is prominence of the pulmonary vasculature. Emphysema and chronic interstitial t hickening is similar to previous. Mild scarring/atelectasis is noted at the lung bases. No airspace c onsolidation or large pleural effusion is identified. No pneumothorax is seen. The bony thorax is jannet ssly intact. Surgical clips project over the right upper quadrant. Surgical clips also project over t he left chest wall and the left axilla. IMPRESSION: 1. Cardiomegaly and emphysema with prominence of the pulmonary vasculature. Correlate clinically for evidence of fluid overload/congestive change. 2. No airspace consolidation or large pleural effusion is identified. ACT 112: Negative or not required by law. Electronically signed by: Evangelista Sal M.D. 12/22/2021 4:33 PM
--- NOTE | 2021-12-22 16:55 | History & Physical Report ---
Date of Service December 22, 2021 Assessment & Plan (1) Chest pain: Plan: Patient presents with chest pain rating to her back and EKG changes. Initial high-sensitivity troponin is unremarkable. Patient was given the remainder of an aspirin load in the ER nitroglycerin sublingual and placed on nitroglycerin paste. Patient will have a aspirin continue daily while the nitroglycerin paste removed we will check additional high sensitive troponin at 2 hours and then every 8 She will continue on metoprolol 25 a day plus losartan 100. An echocardiogram will be performed Cardiology consult be undertaken Patient may have mild fluid overload overload or pulmonary edema seen on chest x-ray 1 dose of Lasix will be given since she is Lasix venita will use 10 mg. Given her previous echocardiogram only showing mild aortic stenosis and the fact that she does not have a significant Lamont loud murmur although this is a poor clinical correlation I do not believe this is unstable angina from her (2) Aortic stenosis: Plan: Last echocardiogram from January 2021 showed mild to moderate valvular aortic stenosis, she has normal left ventricular systolic function and mild mitral regurgitation (3) Hypertension: Plan: Treated with metoprolol and losartan (4) Hyperlipidemia: (5) Chronic kidney disease, stage 3: Plan: Patient had baseline chronic kidney function continue ARB patient is up from baseline months ago but is similar to her baseline in November (6) Prediabetes: Plan: Currently on no medications we will check A1c and placed on sliding scale plus carbohydrate conservative diet History of Present Illness Primary Care Provider: Az Sapp MD 81-year-old female who developed substernal chest discomfort rating to her left arm and jaw about 30 minutes after eating today. Patient reportedly was grocery shopping and denies any chest discomfort while walking around the store but came home and after eating developed this discomfort. However it was a tight bandlike sensation across her chest and was accompanied by discomfort in her arm. Upon presentation she had ST depressions laterally she is LVH by voltage and she was tachycardic. Initial high sensitive troponin was negative and repeat is pending in addition to this she does have an elevation of her glucose but is a history of prediabetes. Risk factors include hypertension prediabetes and previous tobacco use Allergies Allergy/AdvReac Type Severity Reaction Status Date / Time adhesive Allergy Mild Skin Verified 12/22/21 15:51 irritation with tape amoxicillin AdvReac Intermediate Nausea Verified 12/22/21 15:51 propoxyphene AdvReac Intermediate Nausea Verified 12/22/21 15:51 Opioid Analgesics AdvReac Intermediate Dizziness Uncoded 12/22/21 15:51 Home Medications Medication Instructions Recorded Confirmed Type cholecalciferol (vitamin D3) 125 5,000 units PO QAM tab 02/21/19 12/22/21 History mcg (5,000 unit) tablet Prosthetic Mastectomy Bra #2 ea 06/04/19 05/26/21 Rx miscellaneous medical supply #1 ea 06/04/19 05/26/21 Rx multivitamin 1 tab PO QAM 01/06/21 12/22/21 History acetaminophen 500 mg tablet 1,000 mg PO Q8 PRN #90 tab 02/03/21 12/22/21 Rx metoprolol succinate 25 mg 25 mg PO QAM #90 tab 05/04/21 12/22/21 Rx tablet,extended release 24 hr Bacillus coagulans 400 million 400 cell PO QAM 05/26/21 12/22/21 History cell chewable tablet (Digestive Advantage Probiotics-Prebiotic) simvastatin 40 mg tablet 40 mg PO HS #90 tab 06/02/21 12/22/21 Rx losartan 100 mg tablet 100 mg PO QAM #90 tab 09/24/21 12/22/21 Rx levothyroxine 75 mcg tablet 75 mcg PO DAILY #30 tab 11/20/21 12/22/21 Rx aspirin 81 mg tablet,delayed 81 mg PO DAILY 12/22/21 12/22/21 History release Past Med/Surg History Medical History (Updated 12/22/21 @ 16:50 by Trey Ramirez MD) Aortic stenosis Mild to moderate aortic stenosis (LEONORA 1.5cm2, MG 10.8mmhg) per 12/2018 echo Arthritis Cancer Left breast s/p left mastectomy (/LUE limb restriction) Carotid stenosis s/p Right CEA (2013) CKD (chronic kidney disease), stage III PCP monitoring Diverticular disease remote colon resection 2/2 diverticulitis Hearing loss Hyperacusis of both ears Hyperlipidemia Hypertension Memory impairment Osteoarthritis Pulmonary embolism Post-op (cystoscopy 17+ years ago)- previously on AC/since discontinued Surgical History H/O cystoscopy History of bilateral tubal ligation History of cataract surgery History of CEA (carotid endarterectomy) History of cholecystectomy History of colonoscopy History of hip replacement History of modified radical mastectomy of left breast History of partial colectomy History of total abdominal hysterectomy and bilateral salpingo-oophorectomy Family History Mother Cardiac disorder Father Cardiac disorder Sister Myocardial infarction Stroke syndrome Denies family history of Ovarian cancer Prostate cancer Breast cancer Colorectal cancer Social History (Updated 11/17/21 @ 10:53 by Carol Morel MA) Smoking Status: Former smoker Tobacco Type: Cigarettes Age Started Using Tobacco: 19; Age Quit Using Tobacco: 60; packs per day: 0.75; Second Hand Exposure: No; Hx Alcohol Use: No Hx Substance Use: No Preferred Language: Romanian Communication Ability: Effective Visual Impairment: No Limitations Hearing Ability: Use of Hearing Aid Hand Washer Required: No Beliefs That Will Affect Care: None marital status: / Current Living Situation: Alone Current Living Situation Comment: has a [employer] alert and has a lively phone as well at home current occupational status: retired current occupation: she used to work for the [employer] now Richard Feels Safe at Home: Yes Childhood Exposure to Second-Hand Smoke: Yes Diet Comment: salads and veges caffeine: Yes (coffee) Dental Care, Regularly: Yes Physical Activity Frequency: Does not Exercise Seatbelt Use: always Sunscreen Use: No Assistive Devices: Hearing Aid - Left, Hearing Aid - Right and Walker Review of Systems Review of Systems: Mild distress and fatigue, chest pain relieved no headache, no visual changes no speech or swallowing issues Chest pain radiating to her back and left arm no shortness of breath, cough or wheezes no abdominal pain, nausea or vomiting, diarrhea or constipation no dysuria, hematuria or frequency no focal joint pain or swelling no back pain, CVA tenderness or radicular pain no bruising, bleeding or rashes no focal signs of weakness or numbness or altered sensation no complaints of anxiety or depression.. Physical Exam Physical Exam: The patient appeared well nourished and normally developed. Vital signs as documented. Head exam is normocephalic atraumatic Neck is without JVD, thyromegaly, or carotid bruits. Lungs patient has rales at the bases bilaterally Cardiac exam, Rhythm is regular.. patricio consistent with Abdominal exam reveals normal bowel sounds, soft non tender, no mass Extremities are with 1+ edema bilaterally Neurologic exam is alert and oriented, no focal loss of strength or sensation Skin is without bruises or rashes Psychologically is without concerns for anxiety or depression.. Results & Data Results & Data ([facility]) Vital Signs (Past 12 Hours) Vital Signs Temp Pulse Pulse Resp BP BP Pulse Ox 12/22/21 15:16 96 12/22/21 14:52 98.1 F 125 H 20 174/70 H 94 12/22/21 14:50 79 18 174/58 H 96 Diagnostic Findings Chest x-ray with COPD changes and possible mild fluid overload ECG Additional Comments: EKG showing sinus rhythm but tachycardic and lateral ST depressions with large voltages PG Care Time/CCT Total # of Minutes Spent Total Time Spent with Patient: Total time spent is greater than 50% in coordination of care (as documented) at patient's floor/unit and/or counseling patient: Coding Level of Care Code 37498 Initial Inpt Care Lvl 3 Diagnoses Hypertension I10 Hyperlipidemia E78.5 Chronic kidney disease, stage 3 N18.3 Aortic stenosis I35.0 Prediabetes R73.03 Chest pain R07.9
[2021-12-22] MEDS ORDERED: ACETAMINOPHEN 500 MG TAB PO PRN (19:29)
[2021-12-22] MEDS ORDERED: NITROGLYCERIN SL 0.4 MG/TAB TAB SL PRN (19:29)
[2021-12-22] MEDS ORDERED: ALUMINUM/MAGNESIUM SUSP 30 ML UDC PO PRN (19:29)
[2021-12-22] MEDS ORDERED: hydrALAZINE HCL 20 MG/ML VIAL IV PRN (19:29)
[2021-12-22] MEDS ORDERED: METOPROLOL TARTRATE 1 MG/ML VIAL IV PRN (19:29)
[2021-12-22] MEDS ORDERED: DEXTROSE 50% 50 ML SYRINGE IV PRN (19:29)
[2021-12-22] MEDS ORDERED: GLUCOSE 40% GEL 15 GM TUBE PO PRN (19:29)
[2021-12-22] MEDS ORDERED: CARBOHYDRATES FOR HYPOGLYCEMIA PO PRN (19:29)
[2021-12-22] MEDS ORDERED: LORazepam 2 MG/1 ML VIAL IV PRN (19:29)
[2021-12-22] MEDS ORDERED: FUROSEMIDE INJ 20 MG/2 ML VIAL IV ONE (19:29)
[2021-12-22] MEDS ORDERED: ONDANSETRON INJ 2 MG/ML 2 ML VIAL IV PRN (19:29)
[2021-12-22] MEDS ORDERED: GLUCAGON FOR INJ 1 MG VIAL SQ PRN (19:29)
[2021-12-22] MEDS ORDERED: MoRPHine SULFATE 2 MG/ML CARP IV PRN (19:29)
[2021-12-22] MEDS ORDERED: GLUCOSE 10 TABS/TUBE PO PRN (19:29)
[2021-12-22] MEDS: SIMVASTATIN 40 MG TAB PO SCH (20:06)
[2021-12-22] MEDS: INSULIN ASPART PER UNIT SC SCH (20:07)
[2021-12-22] MEDS ORDERED: Heparin IV Adult Wt-Based Standard WITH Bolus Protocol IV SCH (21:03)
[2021-12-22] MEDS ORDERED: HEPARIN SOD (PORCINE) 1000 UNIT/ML IV ONE ×2 (21:14→21:19)
[2021-12-22] MEDS ORDERED: HEPARIN IV BOLUS 4,000 UNITS in SYRINGE 0 ML IV ONE (21:15)
[2021-12-22] MEDS ORDERED: HEPARIN SODIUM/DEXTROSE 25,000 UNITS/500 ML BAG IV SCH (21:15)
[2021-12-22 22:00] LABS: INR 1.1 (0.9-1.1); Partial Thromboplastin Ratio 1.1; Partial Thromboplastin Time 29.1 Seconds (21.0-31.0); Prothrombin Time 11.2 Seconds (9.0-12.0)
[2021-12-22] MEDS: ACETAMINOPHEN 325 MG TAB PO PRN (22:57)
--- NOTE | 2021-12-22 23:22 | Communication Note ---
Date of Service: December 22, 2021 On admission, patient's HS-troponin unremarkable. Repeat HS-troponin elevated at 289.7 (at 7:42pm). Patient evaluated at bedside. States that the presenting chest pain has fully resolved. No further CP, back pain, neck pain, or left arm pain. Patient denies SOB, nausea, or abdominal pain. On exam: lungs CTAB, heart RRR, no murmur, no chest wall tenderness to palpation A/P: UA/NSTEMI Repeat EKG shows T wave inversion, ST depressions resolved, no ST elevations. Order PT/PTT/INR. Will start patient on IV heparin w/ bolus. Continue to trend troponin to peak Cardiology consulted Will continue to monitor patient's symptoms Resident Activity Tracking Resident Involvement: Resident Care Provided Care Provided: Adult Hospital Medicine
[2021-12-23 04:52] LABS: Hematocrit (blood only) 39.3 % (37-47); Hemoglobin 13.1 g/dL (12.0-16.0); Mean Corpuscular Hemoglobin 33.1 pg (25-34); Mean Corpuscular Hgb Conc 33.3 g/dL (32-36); Mean Corpuscular Volume 99.2 fL (80-100); Mean Platelet Volume 10.5 fL (7.4-10.4); Platelet Count 233 K/uL (130-400); RDW Coefficient of Variation 13.6 % (11.5-14.5); Red Blood Count 3.96 M/uL (4.2-5.4); White Blood Count 8.95 K/uL (4.8-10.8)
[2021-12-23 05:07] LABS: BUN Creatinine Ratio 22.5 (10-20); Calcium 9.5 mg/dl (8.5-10.1); Creatinine Clr Calc Pharmacy 33.9 ml/min; Est GFR (African American) 53.2 ml/min; Est GFR (Non-African American) 45.9 ml/min; Potassium 4.1 mmol/L (3.5-5.1)
[2021-12-23 05:13] LABS: Partial Thromboplastin Ratio > 5.1
[2021-12-23 06:03] LABS: Partial Thromboplastin Time > 139.0 Seconds (21.0-31.0)
[2021-12-23] MEDS: LEVOTHYROXINE SODIUM 75 MCG TABLET PO SCH (06:16)
[2021-12-23 07:10] LABS: Estimated Average Glucose 131 mg/dl; Hemoglobin A1C 6.2 % (4.5-5.6)
[2021-12-23] MEDS: INSULIN ASPART PER UNIT SC SCH ×4 (07:20→20:43)
[2021-12-23] MEDS: MULTIVITAMIN TAB PO SCH (07:28)
[2021-12-23] MEDS: CHOLECALCIFEROL 5,000 UNITS 125 MCG TAB PO SCH (07:28)
[2021-12-23] MEDS: METOPROLOL SUCC 25MG EXT REL TAB PO SCH (07:28)
[2021-12-23] MEDS: ASPIRIN 81 MG ECTAB PO SCH (07:29)
[2021-12-23] MEDS: ADVANCED PROBIOTIC 1250 MG CAPSULE PO SCH (07:29)
[2021-12-23 07:54] LABS: Partial Thromboplastin Time 81.3 Seconds (21.0-31.0)
[2021-12-23] MEDS ORDERED: LOSARTAN POTASSIUM 50 MG TAB PO SCH (09:00)
--- NOTE | 2021-12-23 09:24 | Cardiology Consultation ---
Date of Consultation December 23, 2021 Assessment & Plan (1) Acute coronary syndrome: (2) Angina at rest: (3) Aortic stenosis: (4) Hypertension: (5) Hyperlipidemia: ASSESSMENT/PLAN: 1. Acute coronary syndrome/angina: Symptoms concerning for angina/acute coronary syndrome given significant ST depression which resolved following nitroglycerin and resolution of chest discomfort. High sensitivity troponin initially normal with significant increase on repeat value. Has known carotid artery stenosis, hypertension, dyslipidemia for risk factors of CAD. Recommend cardiac catheterization. Risks and benefits were discussed with her in detail. She was made aware that CT surgery is not available at this facility. Currently asymptomatic. She is agreeable to undergo the procedure. Catheterization is non urgent given symptom free. Continue aspirin, heparin drip, beta-sayda, statin therapy. 2. Aortic stenosis: On preliminary review, aortic stenosis appears to be moderate. Continue to monitor over time. 3. Hypertension: Blood pressure has mostly been normotensive overnight. Continue current regimen. 4. Dyslipidemia: LDL well controlled. Consider high-intensity statin therapy in place of simvastatin. 5. Disposition: Cardiology will continue to follow. Plan of care communicated with primary hospitalist, Dr. Hobson. Per her request, her daughter, Екатерина, was contacted via telephone. Presentation and plan of care discussed with her in detail. She plans on updating her brother, Glenn. Highly complex medical issues. Thank you for allowing me to participate in the care of your patient. Please call for any other questions or concerns. Sincerely, Yogesh Escobedo M.D. History of Present Illness Reason for Consultation: Chest pain and abnormal ECG Requesting Physician: Dr. Ramirez Attending Physician: Zan Hobson MD History of Present Illness Mrs. Moore is a very pleasant 81-year-old female with history significant for carotid artery stenosis s/p Right carotid endarterectomy, hypertension, dyslipidemia, CKD, aortic stenosis, and left breast cancer s/p modified radical mastectomy (no chemo or XRT). She was admitted on 12/22/2021 with chest discomfort. Shortly after eating lunch, she was sitting and developed a pressure that went across her chest and into her shoulders. There was no shortness of breath or diaphoresis. The pain initiated at approximately 1:00 p.m.. Her daughter drove her to the emergency department and she arrived at approximately 3:00 p.m.. She was given nitroglycerin x1 and her chest discomfort completely resolved. Her initial ECG demonstrated sinus tachycardia with inferolateral ST depression, which was new compared to previous ECG on 01/14/2021. She chronically has inferolateral T- wave inversions. Repeat ECGs demonstrated significant improvement in the inferolateral ST depression. She has been chest pain-free since then. She was placed on a heparin drip by the hospitalist service and had received aspirin in the emergency department. Her initial high sensitivity troponin was 10 but increased to 289 (peak). She walks with a cane. She does not exercise due to left hip pain. She denies syncope, near-syncope, melena, hematochezia, hematuria, or bleeding. She denies palpitations, edema, orthopnea. She has had the following studies/procedures: 1. Echo 01/20/2021 [place] pg: Normal LV size, wall motion, systolic function. EF 55-60%. Mild to moderate aortic stenosis. Mild MR. Review of systems: As above. Review of systems otherwise negative/unremarkable. Family history: Father at the age of 55 with [place]. Social history: Quit smoking in the . No alcohol. Lives alone. . Has a son (Glenn) and a daughter (Екатерина). Has grandchildren and great grandchildren. She was unaccompanied. Allergies Allergy/AdvReac Type Severity Reaction Status Date / Time adhesive Allergy Mild Skin Verified 12/22/21 15:51 irritation with tape amoxicillin AdvReac Intermediate Nausea Verified 12/22/21 15:51 propoxyphene AdvReac Intermediate Nausea Verified 12/22/21 15:51 Opioid Analgesics AdvReac Intermediate Dizziness Uncoded 12/22/21 15:51 Home Medications Medication Instructions Recorded Confirmed Type cholecalciferol (vitamin D3) 125 5,000 units PO QAM tab 02/21/19 12/22/21 History mcg (5,000 unit) tablet Prosthetic Mastectomy Bra #2 ea 06/04/19 05/26/21 Rx miscellaneous medical supply #1 ea 06/04/19 05/26/21 Rx multivitamin 1 tab PO QAM 01/06/21 12/22/21 History acetaminophen 500 mg tablet 1,000 mg PO Q8 PRN #90 tab 02/03/21 12/22/21 Rx metoprolol succinate 25 mg 25 mg PO QAM #90 tab 05/04/21 12/22/21 Rx tablet,extended release 24 hr Bacillus coagulans 400 million 400 cell PO QAM 05/26/21 12/22/21 History cell chewable tablet (Digestive Advantage Probiotics-Prebiotic) simvastatin 40 mg tablet 40 mg PO HS #90 tab 06/02/21 12/22/21 Rx losartan 100 mg tablet 100 mg PO QAM #90 tab 09/24/21 12/22/21 Rx levothyroxine 75 mcg tablet 75 mcg PO DAILY #30 tab 11/20/21 12/22/21 Rx aspirin 81 mg tablet,delayed 81 mg PO DAILY 12/22/21 12/22/21 History release Patient History Medical History (Updated 12/23/21 @ 09:29 by Kyle Escobedo MD) Aortic stenosis Arthritis Cancer Left breast s/p left mastectomy (/LUE limb restriction) Carotid stenosis s/p Right CEA (2013) CKD (chronic kidney disease), stage III PCP monitoring Diverticular disease remote colon resection 2/2 diverticulitis Hearing loss Hyperacusis of both ears Hyperlipidemia Hypertension Memory impairment Osteoarthritis Pulmonary embolism Post-op (cystoscopy 17+ years ago)- previously on AC/since discontinued Surgical History H/O cystoscopy History of bilateral tubal ligation History of cataract surgery R/L History of CEA (carotid endarterectomy) Right (2013) History of cholecystectomy Lap cholecystectomy (04/30/19): DL x1- Grade 4, EZ mask vent, Glidescope #3 (grade view 2), ETT 7 at [facility] History of colonoscopy History of hip replacement L hip History of modified radical mastectomy of left breast History of partial colectomy History of total abdominal hysterectomy and bilateral salpingo-oophorectomy Family History Mother Cardiac disorder Father Cardiac disorder Sister Myocardial infarction Stroke syndrome Denies family history of Ovarian cancer Prostate cancer Breast cancer Colorectal cancer Social History (Updated 11/17/21 @ 10:53 by Carol Morel MA) Smoking Status: Former smoker Tobacco Type: Cigarettes Age Started Using Tobacco: 19; Age Quit Using Tobacco: 60; packs per day: 0.75; Second Hand Exposure: No; Hx Alcohol Use: No Hx Substance Use: No Preferred Language: Bermudian Communication Ability: Effective Visual Impairment: No Limitations Hearing Ability: Use of Hearing Aid Database Analyst Required: No Beliefs That Will Affect Care: None marital status: / Current Living Situation: Alone Current Living Situation Comment: has a life alert and has a lively phone as well at home current occupational status: retired current occupation: she used to work for the [employer] company, now [employer] Feels Safe at Home: Yes Safety Concerns: Feels Safe At This Time Childhood Exposure to Second-Hand Smoke: Yes Diet Comment: salads and veges caffeine: Yes (coffee) Dental Care, Regularly: Yes Physical Activity Frequency: Does not Exercise Seatbelt Use: always Sunscreen Use: No Assistive Devices: Cane, Glasses and Hearing Aid - Bilateral Physical Exam Physical Exam: Gen.: No acute distress. Alert and oriented. HEENT: Anicteric sclera. Neck: No JVD. Normal carotid upstrokes bilaterally. Cardiac: PMI was nonpalpable. No ventricular heave. Regular. Normal S1-S2. 2/6 early or mid peaking systolic ejection murmur heard best at right upper sternal border. No rubs or gallops. Pulmonary: Clear to auscultation bilaterally without wheezes, rales, or rhonchi. Abdomen: Soft, nontender, nondistended, with normoactive bowel sounds. No bruits noted. Extremities: 1+ radial pulses bilaterally. 2+ posterior tibialis pulses bilaterally. Trace bilateral lower extremity edema. No cyanosis. Psychiatric: Affect appears appropriate. Results & Data ([facility]) Vital Signs (Past 12 Hours) Vital Signs Temp Pulse Pulse Resp BP Pulse Ox 12/23/21 08:14 36.5 C 74 20 143/78 H 92 12/23/21 08:00 75 12/23/21 03:23 36.8 C 66 18 109/68 93 12/23/21 00:00 72 12/22/21 23:18 36.5 C 66 18 102/53 L 93 12/22/21 22:52 72 121/66 12/22/21 21:46 77 12/22/21 21:29 75 132/74 Intake & Output 12/21/21 12/22/21 12/23/21 12/24/21 06:59 06:59 06:59 06:59 Intake Total 252.333 / 252.333 Output Total 200 / 200 Balance 252.333 / 252.333 -200 / -200 Weight 151 lb 7.321 oz 151 lb 7.321 oz Laboratory Results Laboratory Results - last 24 hr 12/22/21 12/22/21 12/22/21 15:20 15:20 15:20 WBC 8.00 RBC 4.04 L Hgb 13.7 Hct 41.0 MCV 101.5 H MCH 33.9 MCHC 33.4 RDW Std Deviation 50.2 H RDW Coeff of Russel 13.4 Plt Count 261 MPV 10.4 Immature Gran % (Auto) 0.5 Neut % (Auto) 55.6 Lymph % (Auto) 32.8 [place] % (Auto) 9.6 Eos % (Auto) 1.0 Baso % (Auto) 0.5 Neut # (Auto) 4.45 Lymph # (Auto) 2.62 [place] # (Auto) 0.77 H Eos # (Auto) 0.08 Baso # (Auto) 0.04 Immature Gran # (Auto) 0.04 H PT INR APTT PTT Ratio Sodium 139 Potassium 3.9 Chloride 106 Carbon Dioxide 23 Anion Gap 10 BUN 26 H Creatinine 1.23 H Est Cr Clr Drug Dosing 30.8 Est GFR ( Amer) 47.0 Est GFR (Non-Af Amer) 40.5 BUN/Creatinine Ratio 21.1 H Glucose 196 H POC Glucose Estimat Average Glucose Hemoglobin A1c Calcium 9.9 Total Bilirubin 0.5 AST 54 H ALT 41 Alkaline Phosphatase 78 Troponin I High Sens 10.3 Total Protein 7.4 Albumin 4.3 Globulin 3.1 Albumin/Globulin Ratio 1.4 Lipase 25 SARS-CoV-2, RNA, NAAT 12/22/21 12/22/21 12/22/21 15:20 19:42 19:48 WBC RBC Hgb Hct MCV MCH MCHC RDW Std Deviation RDW Coeff of Russel Plt Count MPV Immature Gran % (Auto) Neut % (Auto) Lymph % (Auto) [place] % (Auto) Eos % (Auto) Baso % (Auto) Neut # (Auto) Lymph # (Auto) [place] # (Auto) Eos # (Auto) Baso # (Auto) Immature Gran # (Auto) PT INR APTT PTT Ratio Sodium Potassium Chloride Carbon Dioxide Anion Gap BUN Creatinine Est Cr Clr Drug Dosing Est GFR ( Amer) Est GFR (Non-Af Amer) BUN/Creatinine Ratio Glucose POC Glucose 87 Estimat Average Glucose Hemoglobin A1c Calcium Total Bilirubin AST ALT Alkaline Phosphatase Troponin I High Sens 289.7 H* D Total Protein Albumin Globulin Albumin/Globulin Ratio Lipase SARS-CoV-2, RNA, NAAT NEGATIVE 12/22/21 12/23/21 12/23/21 21:35 04:24 04:24 WBC 8.95 RBC 3.96 L Hgb 13.1 Hct 39.3 MCV 99.2 MCH 33.1 MCHC 33.3 RDW Std Deviation 49.0 H RDW Coeff of Russel 13.6 Plt Count 233 MPV 10.5 H Immature Gran % (Auto) Neut % (Auto) Lymph % (Auto) [place] % (Auto) Eos % (Auto) Baso % (Auto) Neut # (Auto) Lymph # (Auto) [place] # (Auto) Eos # (Auto) Baso # (Auto) Immature Gran # (Auto) PT 11.2 INR 1.1 APTT 29.1 PTT Ratio 1.1 Sodium Potassium Chloride Carbon Dioxide Anion Gap BUN Creatinine Est Cr Clr Drug Dosing Est GFR ( Amer) Est GFR (Non-Af Amer) BUN/Creatinine Ratio Glucose POC Glucose Estimat Average Glucose Hemoglobin A1c Calcium Total Bilirubin AST ALT Alkaline Phosphatase Troponin I High Sens 285.6 H* Total Protein Albumin Globulin Albumin/Globulin Ratio Lipase SARS-CoV-2, RNA, NAAT 12/23/21 12/23/21 12/23/21 04:24 04:24 04:24 WBC RBC Hgb Hct MCV MCH MCHC RDW Std Deviation RDW Coeff of Russel Plt Count MPV Immature Gran % (Auto) Neut % (Auto) Lymph % (Auto) [place] % (Auto) Eos % (Auto) Baso % (Auto) Neut # (Auto) Lymph # (Auto) [place] # (Auto) Eos # (Auto) Baso # (Auto) Immature Gran # (Auto) PT INR APTT > 139.0 H* PTT Ratio > 5.1 Sodium 139 Potassium 4.1 Chloride 106 Carbon Dioxide 24 Anion Gap 9 BUN 25 H Creatinine 1.11 Est Cr Clr Drug Dosing 33.9 Est GFR ( Amer) 53.2 Est GFR (Non-Af Amer) 45.9 BUN/Creatinine Ratio 22.5 H Glucose 101 H POC Glucose Estimat Average Glucose 131 Hemoglobin A1c 6.2 H Calcium 9.5 Total Bilirubin AST ALT Alkaline Phosphatase Troponin I High Sens Total Protein Albumin Globulin Albumin/Globulin Ratio Lipase SARS-CoV-2, RNA, NAAT 12/23/21 12/23/21 07:07 07:18 WBC RBC Hgb Hct MCV MCH MCHC RDW Std Deviation RDW Coeff of Russel Plt Count MPV Immature Gran % (Auto) Neut % (Auto) Lymph % (Auto) [place] % (Auto) Eos % (Auto) Baso % (Auto) Neut # (Auto) Lymph # (Auto) [place] # (Auto) Eos # (Auto) Baso # (Auto) Immature Gran # (Auto) PT INR APTT 81.3 H* PTT Ratio 3.0 Sodium Potassium Chloride Carbon Dioxide Anion Gap BUN Creatinine Est Cr Clr Drug Dosing Est GFR ( Amer) Est GFR (Non-Af Amer) BUN/Creatinine Ratio Glucose POC Glucose 92 Estimat Average Glucose Hemoglobin A1c Calcium Total Bilirubin AST ALT Alkaline Phosphatase Troponin I High Sens Total Protein Albumin Globulin Albumin/Globulin Ratio Lipase SARS-CoV-2, RNA, NAAT Diagnostic Findings ECGs personally reviewed as outlined in HPI. Echo report reviewed as noted in HPI. Echo from 12/23/2021 personally reviewed: Preliminary review demonstrated normal LV systolic function. Normal wall motion. Aortic stenosis appears moderate. Formal review to follow after processing/measuring. Chest x-ray 12/22/2021: Cardiomegaly and emphysema with prominent pulmonary vasculature per Radiology. Medications Administered Current Inpatient Medications Acetaminophen (Acetaminophen 325 Mg Tab) 650 mg PO Q4H PRN PRN Reason: Pain or Fever Stop: 01/21/22 19:28 Last Admin: 12/22/21 22:57 Dose: 650 mg Documented by: Al Hydrox/Mg Hydrox/Simethicone (Aluminum/Magnesium Susp 30 Ml Udc) 15 ml PO Q4H PRN PRN Reason: Dyspepsia Stop: 01/21/22 19:28 Aspirin (Aspirin 81 Mg Ectab) 81 mg PO DAILY NICOLE Stop: 01/22/22 08:59 Last Admin: 12/23/21 07:29 Dose: 81 mg Documented by: Dextrose (Dextrose 50% 50 Ml Syringe) 25 - 50 ml IV UD PRN; Protocol PRN Reason: Hypoglycemia Protocol Stop: 01/21/22 19:28 Glucagon (Glucagon For Inj 1 Mg Vial) 1 mg SQ UD PRN; Protocol PRN Reason: Hypoglycemia Protocol Stop: 01/21/22 19:28 Glucose (Glucose 10 Tabs/Tube) 4 - 8 tabs PO UD PRN; Protocol PRN Reason: Hypoglycemia Protocol Stop: 01/21/22 19:28 Glucose (Glucose 40% Gel 15 Gm Tube) 15 - 30 gm PO UD PRN; Protocol PRN Reason: Hypoglycemia Protocol Stop: 01/21/22 19:28 Hydralazine HCl (Hydralazine Hcl 20 Mg/Ml Vial) 10 mg IV Q8 PRN PRN Reason: sbp>185 or dbp>95 Stop: 01/21/22 19:28 Heparin Sodium/Dextrose (Heparin Sodium/Dextrose) 25,000 units in 500 mls @ 0 mls/hr IV .Q0M [facility]; Protocol Stop: 01/21/22 21:14 Last Titration: 12/23/21 05:48 Dose: 0 units/hr, 0 mls/hr Documented by: Insulin Aspart (Insulin Aspart Per Unit) 0 units SC ACHS [facility] Stop: 01/21/22 20:59 Last Admin: 12/23/21 07:20 Dose: Not Given Documented by: Lactobacillus Acidophilus (Advanced Probiotic 1250 Mg Capsule) 2 cap PO [facility] Stop: 01/22/22 08:59 Last Admin: 12/23/21 07:29 Dose: 2 cap Documented by: Levothyroxine Sodium (Levothyroxine Sodium 75 Mcg Tablet) [facility] Stop: 01/22/22 06:29 Last Admin: 12/23/21 06:16 Dose: 75 mcg Documented by: Lorazepam (Lorazepam 2 Mg/1 Ml Vial) 0.5 mg IV Q6H PRN PRN Reason: Agitation Stop: 01/21/22 19:28 Losartan Potassium (Losartan Potassium 50 Mg Tab) 100 mg PO [facility] Stop: 01/22/22 08:59 Last Admin: 12/23/21 07:28 Dose: 100 mg Documented by: Metoprolol Succinate (Metoprolol Succ 25mg Ext Rel Tab) 25 mg PO [facility] Stop: 01/22/22 08:59 Last Admin: 12/23/21 07:28 Dose: 25 mg Documented by: Metoprolol Tartrate (Metoprolol Tartrate 1 Mg/Ml Vial) 5 mg IV Q4 PRN PRN Reason: sbp > 185, dbp >95, HR >120 Stop: 01/21/22 19:28 Miscellaneous (Carbohydrates For Hypoglycemia ) 15 - 30 gm PO UD PRN PRN Reason: Hypoglycemia Protocol Stop: 01/21/22 19:28 Morphine Sulfate (Morphine Sulfate 2 Mg/Ml Carp) 2 mg IV Q30M PRN PRN Reason: Chest Pain Stop: 01/05/22 19:28 Multivitamins (Multivitamin Tab) 1 tab PO QAM NICOLE Stop: 01/22/22 08:59 Last Admin: 12/23/21 07:28 Dose: 1 tab Documented by: Nitroglycerin (Nitroglycerin Sl 0.4 Mg/Tab Tab) 0.4 mg SL UD PRN PRN Reason: Chest Pain Stop: 01/21/22 19:28 Ondansetron HCl (Ondansetron Inj 2 Mg/Ml 2 Ml Vial) 4 mg IV Q6H PRN PRN Reason: Nausea Stop: 01/21/22 19:28 Simvastatin (Simvastatin 40 Mg Tab) 40 mg PO HS NICOLE Stop: 01/21/22 20:59 Last Admin: 12/22/21 20:06 Dose: 40 mg Documented by: Vitamin D (Cholecalciferol 5,000 Units 125 Mcg Tab) 5,000 units PO QAM NICOLE Stop: 01/22/22 08:59 Last Admin: 12/23/21 07:28 Dose: 5,000 units Documented by: PG Care Time/CCT Total # of Minutes Spent Total Time Spent with Patient: Total time spent is greater than 50% in coordination of care (as documented) at patient's floor/unit and/or counseling patient: Coding Level of Care Code 70574 Initial Inpt Care Lvl 3 Diagnoses Angina at rest I20.8 Acute coronary syndrome I24.9 Aortic stenosis I35.0 Hypertension I10 Hyperlipidemia E78.5
--- NOTE | 2021-12-23 12:34 | XCELERA ---
[id number] [id number]
[2021-12-23] MEDS: LIDOCAINE 5% 1 PATCH TD SCH (13:36)
[2021-12-23 15:49] LABS: Partial Thromboplastin Ratio 2.3
[2021-12-23 15:50] LABS: Partial Thromboplastin Time 63.2 Seconds (21.0-31.0)
[2021-12-23] MEDS ORDERED: LIDOCAINE 1% LOCAL 20 ML VIAL ONE (16:05)
--- NOTE | 2021-12-23 16:13 | Pre Anesthesia Assessment ---
Date of Service December 23, 2021 Pre Sedation Assessment Vital Signs Temp Pulse Pulse Resp BP BP Pulse Ox 12/23/21 15:50 36.9 C 79 18 129/55 L 92 12/23/21 11:56 36.7 C 69 18 125/67 94 12/23/21 08:14 36.5 C 74 20 143/78 H 92 12/23/21 08:00 75 12/23/21 03:23 36.8 C 66 18 109/68 93 12/23/21 00:00 72 12/22/21 23:18 36.5 C 66 18 102/53 L 93 12/22/21 22:52 72 121/66 12/22/21 21:46 77 12/22/21 21:29 75 132/74 12/22/21 19:53 36.4 C L 79 18 138/71 94 12/22/21 19:29 138/71 12/22/21 18:45 77 16 139/49 L 93 12/22/21 18:40 73 18 139/49 L 93 12/22/21 16:48 67 18 117/63 96 Pulse Ox 12/23/21 15:50 12/23/21 11:56 12/23/21 08:14 12/23/21 08:00 12/23/21 03:23 12/23/21 00:00 12/22/21 23:18 12/22/21 22:52 12/22/21 21:46 12/22/21 21:29 12/22/21 19:53 12/22/21 19:29 94 12/22/21 18:45 12/22/21 18:40 12/22/21 16:48 Cardiovascular + regular rate + murmur Respiratory normal respiratory effort, lungs clear to auscultation Pre-Sedation Airway Assessment Smoking Status: Former smoker Mallampati Class: III ASA: ASA3 NPO Status Date of Last Intake of Fluids: 12/22/21 Time of Last Intake of Fluids: 21:00 Date of Last Intake of Solid Food: 12/22/21 Time of Last Intake of Solid Foods: 21:00 Procedure Planning Contraindications for Sedation: none Notes The planned sedation has been discussed with the patient. Informed Consent was obtained. I have identified the patient, determined the appropriateness of sedation and have assessed the patient immediately prior to the procedure. All medicine(s) and interventions are by my order.
[2021-12-23] MEDS ORDERED: fentaNYL citrate 100 MCG/2 ML VIAL ONE (16:24)
[2021-12-23] MEDS ORDERED: HEPARIN (PORCINE) 1000 UNIT/ML 10 ML (CATH LAB USE ONLY) ONE (16:24)
[2021-12-23] MEDS ORDERED: niCARdipine HCL INJ 2.5 MG/ML 10 ML AMP ONE (16:24)
[2021-12-23] MEDS ORDERED: MIDAZOLAM HCL 1 MG/ML 2ML VIAL ONE (16:24)
[2021-12-23] MEDS ORDERED: NITROGLYCERIN/D5W 100MCG/ML 20ML SYR ONE (16:25)
--- NOTE | 2021-12-23 17:08 | Post Operative Brief Note ---
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 Full report to follow. Complications none Disposition Disposition: PCU
--- NOTE | 2021-12-23 17:09 | Post Anesthesia Assessment ---
Date of Service December 23, 2021 Post Sedation Assessment Vital Signs Temp Pulse Pulse Resp BP BP Pulse Ox 12/23/21 16:12 80 16 155/53 H 98 12/23/21 15:50 36.9 C 79 18 129/55 L 92 12/23/21 11:56 36.7 C 69 18 125/67 94 12/23/21 08:14 36.5 C 74 20 143/78 H 92 12/23/21 08:00 75 12/23/21 03:23 36.8 C 66 18 109/68 93 12/23/21 00:00 72 12/22/21 23:18 36.5 C 66 18 102/53 L 93 12/22/21 22:52 72 121/66 12/22/21 21:46 77 12/22/21 21:29 75 132/74 12/22/21 19:53 36.4 C L 79 18 138/71 94 12/22/21 19:29 138/71 12/22/21 18:45 77 16 139/49 L 93 12/22/21 18:40 73 18 139/49 L 93 Pulse Ox 12/23/21 16:12 12/23/21 15:50 12/23/21 11:56 12/23/21 08:14 12/23/21 08:00 12/23/21 03:23 12/23/21 00:00 12/22/21 23:18 12/22/21 22:52 12/22/21 21:46 12/22/21 21:29 12/22/21 19:53 12/22/21 19:29 94 12/22/21 18:45 12/22/21 18:40 Recovery Score Activity: Moves 4 extremities Respiration: Deep Breath/Cough Circulation: +/-20% PreAnes Value Consciousness: Fully Awake Oxygen Saturation: > 92% On Room Air Discharge Sedation Level of Care: Fast Track Phase II Post Sedation Plan On clinical assessment, the patient appears to have tolerated the sedation without complications. Patient is recovering as anticipated. Patient will continue to be monitored by nursing and may be discharged when sedation discharge criteria are met per below protocol. Upon Completions of procedure up to 15 minutes continue every 5 minute vital signs and the P.A.R. score; then discharge to a Phase I or Fast Track to Phase II per the following guidelines: * Discharge Patient to appropriate Phase II area if PAR is 8 or greater or return to pre- procedure baseline. The post - procedure orders will be as directed. * If PAR score is less than 8 or not return to pre-procedure baseline then patient will follow Phase I monitoring till PAR is reached for Phase II. The Phase I may be done in procedure room or may call to secure a Phase I area. * If naloxone or flumazenil are used for reversal, hold in Phase I for continued monitoring from when last reversal dose was given for a minimum of 60 minutes or longer pending the nurse and/or physician discretion of patient condition before discharge to Phase II. Please call the Sedation Physician to re-evaluate and complete post-note for discharge to Phase II area. Do NOT discharge from procedure sedation or Phase 1 until post- sedation evaluation note is complete by procedure /sedation MD Sedation Discharge Instructions to be given to the patient at discharge to home.
[2021-12-23] MEDS ORDERED: SODIUM CHLORIDE 0.9% 1000ML 1,000 ML IV SCH (17:15)
--- NOTE | 2021-12-23 17:27 | Cardiac Catheterization ---
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 Cardiac Status Clinical evaluation leading to the procedure CAD Presenation: Unstable angina Anginal Classification: CCS IV Heart Failure: No Cardiogenic Shock within 24 Hours: No Cardiac Arrest within 24 Hours: No Imaging Studies Past 6 Months: Yes Stress Studies Past 6 Months: No Coronary Anatomy Dominant: Right Diagnostic Physicians Name: Kyle Escobedo MD Status: Elective Closure Device Percutaneous Entry Location: Radial Closure Device: Radial Band Recommendations: Management Recommendatons Cardiac Cath Procedure Full Procedure Date December 23, 2021 Pre-Procedure Diagnosis Pre-Procedure Diagnosis: Angina AUC Score AUC Score: 7 Post-Procedure Diagnosis Post-Procedure Diagnosis: Moderate CAD Procedure(s) Performed Procedure(s) Performed: Coronary Angiography and Left Heart Cath Garment Presser Kyle Escobedo MD Band Teacher(s) Charli Estimated Blood Loss Estimated Blood Loss: < 25 ml Medication(s) Medication(s): Fentanyl, Heparin, Lidocaine 1%, Nicardipine, Nitroglycerin and Versed Summary of Findings Procedures: 1. Coronary angiography 2. Left heart catheterization 3. Moderate sedation Indication: Ms. Moore is a pleasant 81-year-old female with a history significant for carotid artery stenosis, hypertension, and dyslipidemia who presented with symptoms concerning for unstable angina with dynamic ST changes on ECG and elevated high-sensitivity troponin. Coronary angiography: 1. Left main: Distal left main 10%. 2. Left anterior descending: Luminal irregularities noted within the proximal and mid LAD. D1 and D2 without significant CAD. 3. Circumflex: No significant CAD within the circumflex, small OM1 and very small OM 2. 4. Right coronary artery: RCA is large and dominant. Late proximal RCA 20%. Luminal irregularities within the mid RCA. Distal RCA 40 to 50% at bifurcation of PDA and PL. PDA and PL without significant CAD. ISABELLE-3 flow. Left heart catheterization: 1. Left ventriculography was not performed. 2. Normal LVEDP; 9 mmHg. 3. Mild aortic stenosis with peak to peak gradient of approximately 10 mmHg. 4. Left heart pressures were obtained when the JR4 diagnostic catheter fell across the valve inadvertently. Moderate sedation: 1. Sedation start time: 4:30 PM 2. Sedation end time: 4:54 PM Procedural notes: 1. There was significant spasm within the right upper extremity with a 5 Khmer diagnostic JL 3.5 diagnostic catheter. She was provided more sedation, sublingual nitroglycerin, and intra-arterial nicardipine. A 4 Khmer JR4 diagnostic catheter was used without resistance. Impression: 1. Nonobstructive CAD. 2. Normal left-sided filling pressure. 3. Mild aortic stenosis. Plan: 1. Risk factor modification. Hemodynamics Rest Ao:: 151/57 Final Ao: 105/47 LV: 109/0/9 Recommendations Recommendations: Management Recommendatons Specimens Specimens: None Radiation Exposure (mGy) 857 mGy. Fluoro time 3.1 min. Contrast (mls) 55 ml Procedural Complication(s) None Disposition PCU I attest to the content of the Intraoperative Record and any orders documented therein. Any exceptions are noted below. [facility] Card Cath Procedure Codes Cardiac Catheterization Procedure 1: Cardiovascular Cath Procedures: 49034 Coronaries and LHC (+/-LV) Moderate Sedation Procedure 1: Sedation/Anesthesia: 48383 Mod Sedation by the same physician;Init15 Min Child Age 5 & Up Procedure 2: Sedation/Anesthesia: 15169 Mod Sedation by the same physician; Ea [id number] Minutes PG Care Time/CCT Total # of Minutes Spent Total Time Spent with Patient: Total time spent is greater than 50% in coordination of care (as documented) at patient's floor/unit and/or counseling patient:
--- NOTE | 2021-12-23 18:38 | Hospitalist Progress Note ---
Date of Service December 23, 2021 Assessment & Plan (1) Chest pain: Plan: With elevated troponin Status postcardiac cath today As per my discussion with instructional aide cath was clean Patient can be discharged tomorrow Echocardiogram showed mild aortic stenosis otherwise unremarkable showed preserved ejection fraction with EF of 65% no regional wall motion abnormalities mild concentric left ventricular hypertrophy (2) Aortic stenosis: Plan: No significant change as per echocardiogram done to (3) Hypertension: Plan: Treated with metoprolol and losartan Currently blood pressure on the low side possibly secondary to anesthesia (4) Hyperlipidemia: (5) Chronic kidney disease, stage 3: Plan: Patient had baseline chronic kidney function continue ARB patient is up from baseline months ago but is similar to her baseline in November (6) Prediabetes: Plan: Currently on no medications we will check A1c and placed on sliding scale plus carbohydrate conservative diet Admission and Anticipated Discharge Date Admission Date: December 22, 2021 Subjective Status postcardiac cath today as per discussion with cardiology cardiac cath was unremarkable Review of Systems Review of Systems: Mild distress and fatigue, chest pain relieved no headache, no visual changes no speech or swallowing issues Chest pain radiating to her back and left arm no shortness of breath, cough or wheezes no abdominal pain, nausea or vomiting, diarrhea or constipation no dysuria, hematuria or frequency no focal joint pain or swelling no back pain, CVA tenderness or radicular pain no bruising, bleeding or rashes no focal signs of weakness or numbness or altered sensation no complaints of anxiety or depression.. Physical Exam Physical Exam: Gen.: No acute distress. Alert and oriented. HEENT: Anicteric sclera. Neck: No JVD. Normal carotid upstrokes bilaterally. Cardiac: PMI was nonpalpable. No ventricular heave. Regular. Normal S1-S2. 2/6 early or mid peaking systolic ejection murmur heard best at right upper sternal border. No rubs or gallops. Pulmonary: Clear to auscultation bilaterally without wheezes, rales, or rhonchi. Abdomen: Soft, nontender, nondistended, with normoactive bowel sounds. No bruits noted. Extremities: 1+ radial pulses bilaterally. 2+ posterior tibialis pulses bilaterally. Trace bilateral lower extremity edema. No cyanosis. Psychiatric: Affect appears appropriate. ENMT: Mallampati Class: III Respiratory: normal respiratory effort, lungs clear to auscultation Cardiovascular: Rate/Rhythm: regular rate Heart Sounds: + murmur Results & Data Results & Data ([facility]) Vital Signs (Past 12 Hours) Vital Signs Temp Pulse Pulse Resp BP Pulse Ox 12/23/21 18:30 74 14 103/64 95 12/23/21 18:00 36.5 C 74 20 133/77 93 12/23/21 17:45 78 20 104/51 L 94 12/23/21 17:39 69 14 108/63 93 12/23/21 17:24 36.5 C 73 20 108/63 92 12/23/21 17:09 72 14 123/50 L 92 12/23/21 16:12 80 16 155/53 H 98 12/23/21 15:50 36.9 C 79 18 129/55 L 92 12/23/21 11:56 36.7 C 69 18 125/67 94 12/23/21 08:14 36.5 C 74 20 143/78 H 92 12/23/21 08:00 75 PG Care Time/CCT Total # of Minutes Spent Total Time Spent with Patient: Total time spent is greater than 50% in coordination of care (as documented) at patient's floor/unit and/or counseling patient: Coding Level of Care Code 89973 Subseq Hosp Care Lvl 2 Diagnoses Chest pain R07.9 Aortic stenosis I35.0 Hypertension I10 Hyperlipidemia E78.5 Chronic kidney disease, stage 3 N18.3 Prediabetes R73.03
[2021-12-23] MEDS ORDERED: MELATONIN 3 MG TAB PO PRN (19:32)
[2021-12-23] MEDS: SIMVASTATIN 40 MG TAB PO SCH (20:21)
[2021-12-23] MEDS: ACETAMINOPHEN 325 MG TAB PO PRN (21:50)
[2021-12-24] MEDS: LEVOTHYROXINE SODIUM 75 MCG TABLET PO SCH (05:59)
--- NOTE | 2021-12-24 06:05 | Electrocardiogram Report ---
Test Reason : Blood Pressure : / mmHG Vent. Rate : 115 BPM Atrial Rate : 115 BPM P-R Int : 146 ms QRS Dur : 068 ms QT Int : 300 ms P-R-T Axes : 045 043 244 degrees QTc Int : 415 ms Sinus tachycardia Marked ST abnormality, possible inferolateral subendocardial injury Abnormal ECG When compared with ECG of 14-JAN-2021 12:59, Vent. rate has increased BY [address] now depressed in Inferolateral leads Confirmed by Kyle Escobedo ([id number]) on 12/24/2021 6:05:25 AM Referred By: Confirmed By:Kyle Escobedo
--- NOTE | 2021-12-24 06:59 | Electrocardiogram Report ---
Test Reason : Blood Pressure : / mmHG Vent. Rate : 075 BPM Atrial Rate : 075 BPM P-R Int : 122 ms QRS Dur : 070 ms QT Int : 388 ms P-R-T Axes : 059 037 255 degrees QTc Int : 433 ms Sinus rhythm with Premature supraventricular complexes Abnormal ECG When compared with ECG of 22-DEC-2021 15:02, Premature supraventricular complexes are now Present Vent. rate has decreased BY [address] no longer depressed in Inferolateral leads Confirmed by Kyle Escobedo ([id number]) on 12/24/2021 6:59:03 AM Referred By: REFERRED SELF Confirmed By:Kyle Escobedo
[2021-12-24] MEDS: INSULIN ASPART PER UNIT SC SCH ×2 (07:13→11:12)
[2021-12-24] MEDS: METOPROLOL SUCC 25MG EXT REL TAB PO SCH (07:14)
[2021-12-24] MEDS: ADVANCED PROBIOTIC 1250 MG CAPSULE PO SCH (07:39)
[2021-12-24] MEDS: ASPIRIN 81 MG ECTAB PO SCH (07:40)
[2021-12-24] MEDS: MULTIVITAMIN TAB PO SCH (07:40)
[2021-12-24] MEDS: CHOLECALCIFEROL 5,000 UNITS 125 MCG TAB PO SCH (07:40)
[2021-12-24] MEDS: LIDOCAINE 5% 1 PATCH TD SCH (07:40)
[2021-12-24 11:08] LABS: Hematocrit (blood only) 41.4 % (37-47); Hemoglobin 13.9 g/dL (12.0-16.0); Mean Corpuscular Hemoglobin 33.7 pg (25-34); Mean Corpuscular Hgb Conc 33.6 g/dL (32-36); Mean Corpuscular Volume 100.5 fL (80-100); Mean Platelet Volume 10.5 fL (7.4-10.4); Platelet Count 274 K/uL (130-400); RDW Coefficient of Variation 13.5 % (11.5-14.5); RDW Standard Deviation 49.8 fL (36.4-46.3); Red Blood Count 4.12 M/uL (4.2-5.4); White Blood Count 9.78 K/uL (4.8-10.8)
[2021-12-24 11:19] LABS: BUN Creatinine Ratio 24.5 (10-20); Calcium 9.7 mg/dl (8.5-10.1); Creatinine Clr Calc Pharmacy 34.1 ml/min; Est GFR (African American) 53.8 ml/min; Est GFR (Non-African American) 46.4 ml/min; Potassium 4.4 mmol/L (3.5-5.1)
--- NOTE | 2021-12-24 13:59 | Cardiology Progress Note ---
Date of Service December 24, 2021 Assessment & Plan (1) CAD (coronary artery disease): (2) Atrial tachycardia: (3) Aortic stenosis: (4) Hypertension: (5) Hyperlipidemia: Plan: ASSESSMENT/PLAN: 1. CAD: Recommend aspirin 81 mg daily. Continue beta-sayda and statin therapy. Had similar symptoms for which she prevented, which correlated with sustained atrial tachycardia. Nonobstructive CAD on cardiac catheterization. Risk factor modification. 2. Aortic stenosis: Non severe. Monitor over time. 3. Atrial tachycardia: Had a sustained episode for approximately 15 minutes on 12/24/2021 which reproduced her presenting symptoms and may have caused her elevated troponins in the setting of demand ischemia. The episode on 12/24/2021 occurred without beta-sayda on board as it was held by nursing staff in the morning due to transient hypotension. Recommend increasing metoprolol succinate to 50 mg daily. Outpatient 30 day event monitor to evaluate for atrial tachycardia burden and response to treatment. Discussed with patient and her daughter at the bedside. 4. Hypertension: Blood pressure has mostly been normotensive, but had transient mild hypotension this morning. If issues with hypotension, would reduce ARB to allow for beta-sayda therapy. 5. Dyslipidemia: LDL well controlled. Consider high-intensity statin therapy in place of simvastatin, but long-term benefit is questionable. Because she is tolerating simvastatin, no changes made at this time. 6. Disposition: She can be discharged home from a cardiology's perspective. Follow-up is being arranged in the outpatient setting, after completion of her 30 day event monitor. Plan of care communicated with Dr. Navarrete of the primary hospitalist service. Admission and Anticipated Discharge Date Admission Date: December 22, 2021 Subjective At approximately 11:02 a.m., she developed atrial tachycardia which was sustained for approximately 15 minutes with heart rates in the 120s. She recalls the same symptoms for which she presented, which involved pressure in her chest into her shoulders and back. It was more mild than on presentation and lasted approximately 15 minutes, which was similar to the arrhythmia. She otherwise denies any other chest discomfort, shortness of breath, syncope, palpitations, or edema. She has not had any issues with her right radial cath site. Her daughter was present at the bedside. Review of systems: As above. Physical Exam Physical Exam: Gen.: No acute distress. Alert and oriented. HEENT: Anicteric sclera. Neck: No JVD. Cardiac: PMI was nonpalpable. No ventricular heave. Regular. Normal S1-S2. 2/6 early - mid peaking systolic ejection murmur heard best at right upper sternal border. No rubs or gallops. Pulmonary: Clear to auscultation bilaterally without wheezes, rales, or rhonchi. Abdomen: Soft, nontender, nondistended, with normoactive bowel sounds. No bruits noted. Extremities: 1+ radial pulses bilaterally. Right radial cath site is clean, dry, intact, without erythema, hematoma, or discharge. 2+ posterior tibialis pulses bilaterally. Trace bilateral lower extremity edema. No cyanosis. Psychiatric: Affect appears appropriate. Results & Data ([facility]) Vital Signs (Past 12 Hours) Vital Signs Temp Pulse Pulse Resp BP BP Pulse Ox 12/24/21 11:11 36.8 C 111 H 18 127/75 92 12/24/21 08:00 72 12/24/21 07:07 36.7 C 70 18 88/52 L 96 12/24/21 03:13 37.0 C 74 17 113/51 L 91 Intake & Output 12/22/21 12/23/21 12/24/21 12/25/21 06:59 06:59 06:59 06:59 Intake Total 252.333 / 252.333 777.767 / 777.767 Output Total 201 / 201 Balance 252.333 / 252.333 576.767 / 576.767 Weight 151 lb 7.321 oz 149 lb 4.047 oz Laboratory Results Laboratory Results - last 24 hr 12/23/21 12/23/21 12/23/21 15:03 16:38 19:19 WBC RBC Hgb Hct MCV MCH MCHC RDW Std Deviation RDW Coeff of Russel Plt Count MPV APTT 63.2 H* PTT Ratio 2.3 Activ Coag Time Kaolin 154 H Sodium Potassium Chloride Carbon Dioxide Anion Gap BUN Creatinine Est Cr Clr Drug Dosing Est GFR ( Amer) Est GFR (Non-Af Amer) BUN/Creatinine Ratio Glucose POC Glucose Calcium Troponin I High Sens 159.0 H* D 12/23/21 12/24/21 12/24/21 20:15 07:10 10:24 WBC 9.78 RBC 4.12 L Hgb 13.9 Hct 41.4 MCV 100.5 H MCH 33.7 MCHC 33.6 RDW Std Deviation 49.8 H RDW Coeff of Russel 13.5 Plt Count 274 MPV 10.5 H APTT PTT Ratio Activ Coag Time Kaolin Sodium Potassium Chloride Carbon Dioxide Anion Gap BUN Creatinine Est Cr Clr Drug Dosing Est GFR ( Amer) Est GFR (Non-Af Amer) BUN/Creatinine Ratio Glucose POC Glucose 95 95 Calcium Troponin I High Sens 12/24/21 12/24/21 10:24 11:10 WBC RBC Hgb Hct MCV MCH MCHC RDW Std Deviation RDW Coeff of Russel Plt Count MPV APTT PTT Ratio Activ Coag Time Kaolin Sodium 137 Potassium 4.4 Chloride 104 Carbon Dioxide 24 Anion Gap 9 BUN 27 H Creatinine 1.10 Est Cr Clr Drug Dosing 34.1 Est GFR ( Amer) 53.8 Est GFR (Non-Af Amer) 46.4 BUN/Creatinine Ratio 24.5 H Glucose 116 H POC Glucose 103 H Calcium 9.7 Troponin I High Sens Diagnostic Findings The telemetry personally reviewed: Sinus rhythm with an episode of sustained atrial tachycardia at approximately 120 beats per minute on 12/24/2021 at 11:02 a.m. to 11:17 a.m.. Cardiac catheterization 12/23/2021: Coronary angiography: 1. Left main: Distal left main 10%. 2. Left anterior descending: Luminal irregularities noted within the proximal and mid LAD. D1 and D2 without significant CAD. 3. Circumflex: No significant CAD within the circumflex, small OM1 and very small OM 2. 4. Right coronary artery: RCA is large and dominant. Late proximal RCA 20%. Luminal irregularities within the mid RCA. Distal RCA 40 to 50% at bifurcation of PDA and PL. PDA and PL without significant CAD. ISABELLE-3 flow. Left heart catheterization: 1. Left ventriculography was not performed. 2. Normal LVEDP; 9 mmHg. 3. Mild aortic stenosis with peak to peak gradient of approximately 10 mmHg. 4. Left heart pressures were obtained when the JR4 diagnostic catheter fell across the valve inadvertently. Medications Administered Current Inpatient Medications Acetaminophen (Acetaminophen 325 Mg Tab) 650 mg PO Q4H PRN PRN Reason: Pain or Fever Stop: 01/21/22 19:28 Last Admin: 12/23/21 21:50 Dose: 650 mg Documented by: Al Hydrox/Mg Hydrox/Simethicone (Aluminum/Magnesium Susp 30 Ml Udc) 15 ml PO Q4H PRN PRN Reason: Dyspepsia Stop: 01/21/22 19:28 Aspirin (Aspirin 81 Mg Ectab) 81 mg PO DAILY NICOLE Stop: 01/22/22 08:59 Last Admin: 12/24/21 07:40 Dose: 81 mg Documented by: Dextrose (Dextrose 50% 50 Ml Syringe) 25 - 50 ml IV UD PRN; Protocol PRN Reason: Hypoglycemia Protocol Stop: 01/21/22 19:28 Glucagon (Glucagon For Inj 1 Mg Vial) 1 mg SQ UD PRN; Protocol PRN Reason: Hypoglycemia Protocol Stop: 01/21/22 19:28 Glucose (Glucose 10 Tabs/Tube) 4 - 8 tabs PO UD PRN; Protocol PRN Reason: Hypoglycemia Protocol Stop: 01/21/22 19:28 Glucose (Glucose 40% Gel 15 Gm Tube) 15 - 30 gm PO UD PRN; Protocol PRN Reason: Hypoglycemia Protocol Stop: 01/21/22 19:28 Hydralazine HCl (Hydralazine Hcl 20 Mg/Ml Vial) 10 mg IV Q8 PRN PRN Reason: sbp>185 or dbp>95 Stop: 01/21/22 19:28 Insulin Aspart (Insulin Aspart Per Unit) 0 units SC ACHS [facility] Stop: 01/21/22 20:59 Last Admin: 12/24/21 11:12 Dose: Not Given Documented by: Lactobacillus Acidophilus (Advanced Probiotic 1250 Mg Capsule) 2 cap PO QAM [facility] Stop: 01/22/22 08:59 Last Admin: 12/24/21 07:39 Dose: Not Given Documented by: Levothyroxine Sodium (Levothyroxine Sodium 75 Mcg Tablet) 75 mcg PO DAILYBB [facility] Stop: 01/22/22 06:29 Last Admin: 12/24/21 05:59 Dose: 75 mcg Documented by: Lidocaine (Lidocaine 5% 1 Patch) 1 patch TD QAM [facility] Stop: 01/22/22 12:29 Last Admin: 12/24/21 07:40 Dose: 1 patch Documented by: Lorazepam (Lorazepam 2 Mg/1 Ml Vial) 0.5 mg IV Q6H PRN PRN Reason: Agitation Stop: 01/21/22 19:28 Melatonin (Melatonin 3 Mg Tab) 3 mg PO HS PRN PRN Reason: Sleep Stop: 01/22/22 19:31 Last Admin: 12/23/21 21:50 Dose: 3 mg Documented by: Metoprolol Succinate (Metoprolol Succ 50mg Ext Rel Tab) [facility] Stop: 01/23/22 13:59 Metoprolol Tartrate (Metoprolol Tartrate 1 Mg/Ml Vial) 5 mg IV Q4 PRN PRN Reason: sbp > 185, dbp >95, HR >120 Stop: 01/21/22 19:28 Miscellaneous (Carbohydrates For Hypoglycemia ) 15 - 30 gm PO UD PRN PRN Reason: Hypoglycemia Protocol Stop: 01/21/22 19:28 Miscellaneous (Remove Lidoderm Patch) 1 ea N/A DAILY@2100 [facility] Stop: 01/22/22 22:59 Last Admin: 12/23/21 22:05 Dose: 1 ea Documented by: Morphine Sulfate (Morphine Sulfate 2 Mg/Ml Carp) 2 mg IV Q30M PRN PRN Reason: Chest Pain Stop: 01/05/22 19:28 Multivitamins (Multivitamin Tab) 1 tab PO [facility] Stop: 01/22/22 08:59 Last Admin: 12/24/21 07:40 Dose: 1 tab Documented by: Nitroglycerin (Nitroglycerin Sl 0.4 Mg/Tab Tab) 0.4 mg SL UD PRN PRN Reason: Chest Pain Stop: 01/21/22 19:28 Ondansetron HCl (Ondansetron Inj 2 Mg/Ml 2 Ml Vial) 4 mg IV Q6H PRN PRN Reason: Nausea Stop: 01/21/22 19:28 Simvastatin (Simvastatin 40 Mg Tab) 40 mg PO HS [facility] Stop: 01/21/22 20:59 Last Admin: 12/23/21 20:21 Dose: 40 mg Documented by: Vitamin D (Cholecalciferol 5,000 Units 125 Mcg Tab) 5,000 units PO [facility] Stop: 01/22/22 08:59 Last Admin: 12/24/21 07:40 Dose: 5,000 units Documented by: PG Care Time/CCT Total # of Minutes Spent Total Time Spent with Patient: Total time spent is greater than 50% in coordination of care (as documented) at patient's floor/unit and/or counseling patient: Coding Level of Care Code 92763 Subseq Hosp Care Lvl 3 Diagnoses Aortic stenosis I35.0 Hypertension I10 Hyperlipidemia E78.5 Atrial tachycardia I47.1 CAD (coronary artery disease) I25.10
[2021-12-24] MEDS ORDERED: METOPROLOL SUCC 50MG EXT REL TAB PO SCH (14:00)
--- NOTE | 2021-12-24 14:52 | Discharge Summary ---
Date of Service December 24, 2021 Admission HPI Per Admitting Provider 81-year-old female who developed substernal chest discomfort rating to her left arm and jaw about 30 minutes after eating today. Patient reportedly was grocery shopping and denies any chest discomfort while walking around the store but came home and after eating developed this discomfort. However it was a tight bandlike sensation across her chest and was accompanied by discomfort in her arm. Upon presentation she had ST depressions laterally she is LVH by voltage and she was tachycardic. Initial high sensitive troponin was negative and repeat is pending in addition to this she does have an elevation of her glucose but is a history of prediabetes. Risk factors include hypertension prediabetes and previous tobacco use Principal Diagnosis Atypical chest pain Discharge Exam Constitutional WD/WN, vitals as above Respiratory normal respiratory effort, lungs clear to auscultation Cardiovascular RRR, no murmur, no edema Gastrointestinal (Abdomen) normal bowel sounds, soft, nontender, no hepatosplenomegaly Discharge Data Allergies Allergy/AdvReac Type Severity Reaction Status Date / Time adhesive Allergy Mild Skin Verified 12/29/21 10:02 irritation with tape amoxicillin AdvReac Intermediate Nausea Verified 12/29/21 10:02 propoxyphene AdvReac Intermediate Nausea Verified 12/29/21 10:02 Opioid Analgesics AdvReac Intermediate Dizziness Uncoded 12/29/21 10:02 Consultations 12/22/21 17:33 ED Decision to Admit Stat 12/22/21 19:29 Consult Cardiology Routine Procedures Performed Operation Date: 12/23/21 14:00 Actual Procedures p Cineradiography w/Routine Exam - Kyle Escobedo MD p Cath, Coronaries ONLY (no LV) - Kyle Escobedo MD Ordered Studies 12/23/21 16:14 CL Cath Imgs for PACS use only Routine Hospital Course (1) Chest pain: Zuly Moore is an 81 year old female admitted to [facility] from December 22 - 2021 due to chest pain. Initial concern for acute coronary syndrome with elevated troponin and EKG changes however this was subsequently ruled out with cardiac catheterization showing non-obstructive coronary artery disease. She did have an episode of paroxysmal atrial tachycardia but appeared to be asymptomatic during this - cardiology recommended increasing metoprolol succinate to 50mg PO daily to reduce this. No definitive cause of your chest pain was found but given association with drinking lemonade possibly this was heartburn related. No specific medication is recommended for this unless recurrent. She was advised to follow up with her primary care physician. (2) Aortic stenosis: (3) Hypertension: (4) Hyperlipidemia: (5) Chronic kidney disease, stage 3: (6) Prediabetes: Total Time Total Time Spent Total Time Spent (In Minutes): 35 Discharge Plan Discharge Items Patient Disposition: Home - Self-Care Reason For Visit: CHEST PAIN, ABNORMAL ECG Discharge Diagnosis: Atypical chest pain Activity: Resume your previous activity Non-emergency contact: Primary Care Provider Call non-emergency contact if: you have any medication questions and your symptoms worsen Follow-up/Referrals: Az Sapp MD [Primary Care Provider] - Zeinab Guajardo PA-C [Physician [employer]er] - 01/07/22 12:00 pm (Please follow up with Zeinab Guajardo PA-C on 01/07/22 at 12:00 pm. Please arrive to the office at 11:45 am for your appointment. If you are unable to keep this appointment, please call the office to reschedule at [phone].) Diet: Heart Healthy Addtl Attending Provider Instructions: You were admitted to [facility] from December 22 - 2021 due to chest pain. Initial concern for acute coronary syndrome with elevated troponin and EKG changes however this was subsequently ruled out with cardiac catheterization. You did have an episode of paroxysmal atrial tachycardia but appeared to be asymptomatic during this - cardiology recommended increasing your metoprolol succinate to 50mg PO daily to reduce this. No definitive cause of your chest pain was found but given association with drinking lemonade possibly this was heartburn related. No specific medication is recommended for this unless recurrent. Please follow up with your primary care physician. Post Cardiac catheterization recommendations: ACTIVITY RECOMMENDATIONS: Excess manipulation of the wrist should be avoided for the next 24-48 hours. * No lifting over 2 pounds (approximately a 1/2 gallon of milk) with the utilized arm for 24 hours. * No strenuous activity such as bowling or tennis for 3 days. * Keep the site of the procedure covered with a bandage for 24 hours. *You may shower the day after the procedure. Do not take a tub bath or submerge the puncture site in water for the next 3 days. *Do not operate any motorized equipment for 3 days. SPECIAL CARE INSTRUCTIONS: The site may be slightly bruised and sore following your procedure. Should any of the following occur, contact the Dr. who performed your procedure. 1. Redness/inflammation, swelling, chills, or fever, or colored drainage at procedure site within 3-7 days after your procedure. 2. Coldness, discoloration, ongoing numbness, severe pain, or swelling. Expect mild tingling of hand and tenderness at the puncture site for up to three days. If this persists beyond three days, or other symptoms develop, notify the Dr. who performed your procedure. BLEEDING: If the procedure site on your wrist begins to bleed, do not panic 1. Place 1 or 2 fingers firmly just slightly above the insertion site to stop the bleeding. You may be able to feel your pulse as you hold pressure. 2. Lift your finger after 5 minutes to see if the bleeding has stopped. 3. Once the bleeding has stopped, gently wipe the wrist area clean with a bandage. * If the bleeding from your wrist does not stop after 10 minutes, or if there is a large amount of bleeding or spurting, call 911 (do not drive yourself to the hospital). SKIN IRRITATION: * You may experience some redness and/or swelling in the area where radiation was administered. If any skin irritation occurs, please contact your family physician. FOLLOW UP VISIT: Keep any scheduled doctor appointments. Pending Studies at Discharge: No Stand-Alone Forms: [facility] [employer], Smoking Cessation Medications and DC Order Prescriptions: New metoprolol succinate 50 mg Tablet Extended Release 24 Hr 50 mg PO QAM Qty: 30 RF: 0 Continued (DME) Prosthetic [place] [facility] [place] Dose Instructions .ROUTE .MEDSUPPLY Qty: 2 RF: 0 (DME) miscellaneous medical supply [facility] [place] See Dose Instructions .ROUTE .MEDSUPPLY Qty: 1 RF: 0 simvastatin 40 mg tablet 40 mg PO HS Qty: 90 RF: 3 losartan 100 mg tablet 100 mg PO QAM Qty: 90 RF: 3 levothyroxine 75 mcg tablet 75 mcg PO DAILY Qty: 30 RF: 11 Digestive Advantage Probio-Pre 400 million cell tablet,chewable 400 cell PO QAM RF: 0 cholecalciferol (vitamin D3) 5,000 unit tablet 5,000 units PO QAM RF: 0 multivitamin Tablet 1 tab PO QAM RF: 0 acetaminophen 500 mg Tablet 1,000 mg PO Q8 PRN (Reason: pain/fevers) Qty: 90 RF: 0 aspirin 81 mg Tablet,Delayed Release (Dr/Ec) 81 mg PO DAILY RF: 0 Discontinued metoprolol succinate 25 mg tablet extended release 24 hr 25 mg PO QAM Qty: 90 RF: 3 Discharge Orders: Discharge Order (Routine); Ordered 12/24/21 Ordered By: Juancho Ahumada/Other Patient Handouts: Prediabetes Admission Data Admit Date/Time: 12/22/21 17:03 Attending Provider: Juancho Navarrete Admit Provider: Zan Hobson Primary Care Provider: Az Sapp Other Providers: Trey Ramirez ; Kyle Escobedo Other Interventions: Discharge Summary Assessment (RN) Last Done: 12/24/21 15:00 Coding Level of Care Code D/C DAY MANAGEMENT >30 MINS Diagnoses Chest pain R07.9 Aortic stenosis I35.0 Hypertension I10 Hyperlipidemia E78.5 Chronic kidney disease, stage 3 N18.3 Prediabetes R73.03
--- NOTE | 2021-12-24 22:55 | Electrocardiogram Report ---
Test Reason : Blood Pressure : / mmHG Vent. Rate : 077 BPM Atrial Rate : 077 BPM P-R Int : 134 ms QRS Dur : 068 ms QT Int : 398 ms P-R-T Axes : 046 038 208 degrees QTc Int : 450 ms Sinus rhythm with Premature atrial complexes Abnormal ECG When compared with ECG of 22-DEC-2021 21:22, No significant change was found Confirmed by Kyle Escobedo ([id number]) on 12/24/2021 10:55:01 PM Referred By: REFERRED SELF Confirmed By:Kyle Escobedo
--- NOTE | 2021-12-25 16:58 | Electrocardiogram Report ---
Test Reason : Blood Pressure : / mmHG Vent. Rate : 071 BPM Atrial Rate : 071 BPM P-R Int : 124 ms QRS Dur : 068 ms QT Int : 394 ms P-R-T Axes : 049 042 -72 degrees QTc Int : 428 ms Sinus rhythm with Premature atrial complexes T wave abnormality, consider anterolateral ischemia Abnormal ECG When compared with ECG of 23-DEC-2021 06:14, No significant change Confirmed by Kyle Escobedo ([id number]) on 12/25/2021 4:58:29 PM Referred By: REFERRED SELF Confirmed By:Kyle Escobedo
== END 2021-12-24 15:45 | disposition home or self-care (01) | DRG 287 ==
LOC: ED 14:50 → SUATTDRO 17:03 → 2S 17:03
PROC: CLB.CCO (2021-12-23 14:00)